=== PATIENT | female | born 1950 | race Caucasian/White ===

== ENCOUNTER 2016-12-25 13:51 | Outpatient (CLI) | payer MEDICARE ==
[~2016-12-25] VITALS: Ht 162.6 cm; Wt 92.5 kg
[~2016-12-25 13:51] MED LIST: CHLO25TA PO; LEVO100T5 PO; LISI10TA4 PO
[2016-12-25] MEDS ORDERED: NS 1,000 ML IV ONE (14:00)
[2016-12-25] MEDS ORDERED: fentaNYL 100 MCG/2 ML INJECTION (J3010) As Ordered ONE (14:29)
[2016-12-25] MEDS ORDERED: LIDOCAINE 2% INJ 100 MG/5 ML SDV (FOR ANES.) As Ordered ONE (14:37)
[2016-12-25] MEDS ORDERED: PROPOFOL 200 MG/20 ML VIAL As Ordered ONE (14:37)
--- NOTE | 2016-12-25 14:42 | ROOR ---
Patient Name: Francine Muir Procedure Date: 12/25/2016 2:26 PM Date of : 1950 Age: 66 Room: [facility], [facility]IN [facility] Gender: Female Note Status: Finalized Procedure: Upper GI endoscopy Indications: Dysphagia Providers: DO Anh Espinoza MD: Marva Galvan NP Requesting Provider: Medicines: Propofol per Anesthesia Complications: No immediate complications. Procedure: Pre-Anesthesia Assessment: - Prior to the procedure, a History and Physical was performed, and patient medications and allergies were reviewed. The patient is competent. The risks and benefits of the procedure and the sedation options and risks were discussed with the patient. All questions were answered and informed consent was obtained. Patient identification and proposed procedure were verified by the physician, the nurse, the anesthesiologist and the production technician in the endoscopy suite. Mental Status Examination: alert and oriented. Airway Examination: normal oropharyngeal airway and neck mobility. Respiratory Examination: clear to auscultation. CV Examination: normal. Prophylactic Antibiotics: The patient does not require prophylactic antibiotics. Prior Anticoagulants: The patient has taken no previous anticoagulant or antiplatelet agents. ASA Grade Assessment: II - A patient with mild systemic disease. After reviewing the risks and benefits, the patient was deemed in satisfactory condition to undergo the procedure. The anesthesia plan was to use monitored anesthesia care (MAC). Immediately prior to administration of medications, the patient was re-assessed for adequacy to receive sedatives. The heart rate, respiratory rate, oxygen saturations, blood pressure, adequacy of pulmonary ventilation, and response to care were monitored throughout the procedure. The physical status of the patient was re-assessed after the procedure. The Endoscope was introduced through the mouth, and advanced to the second part of duodenum. The upper GI endoscopy was accomplished without difficulty. The patient tolerated the procedure well. Findings: LA Grade A (one or more mucosal breaks less than 5 mm, not extending between tops of 2 mucosal folds) esophagitis with bleeding was found. Biopsies were taken with a cold forceps for histology. One mild benign-appearing, intrinsic stenosis was found. And was traversed. Localized mild inflammation characterized by erythema was found in the stomach. Biopsies were taken with a cold forceps for Helicobacter pylori testing. Estimated blood loss was minimal. Impression: - LA Grade A esophagitis. Biopsied. - Benign-appearing esophageal stenosis. - Gastritis. Biopsied. Recommendation: - Patient has a contact number available for emergencies. The signs and symptoms of potential delayed complications were discussed with the patient. Return to normal activities tomorrow. Written discharge instructions were provided to the patient. - Return to my office PRN. - Telephone my office for pathology results in 1 week. Ricky Alejo DO 12/25/2016 2:41:54 PM This report has been signed electronically. Number of Addenda: 0 Note Initiated On: 12/25/2016 2:26 PM Estimated Blood Loss: Estimated blood loss was minimal.
[2016-12-25 15:07] VITALS: BP 133/68
== END 2016-12-25 15:06 | disposition home or self-care (01) ==
LOC: M OPP 13:51
PROVIDERS: ATTEND Surgery
DX: R13.10 Dysphagia, unspecified (principal); K20.9 Esophagitis, unspecified; K22.2 Esophageal obstruction; K29.70 Gastritis, unspecified, without bleeding; K21.9 Gastro-esophageal reflux disease without esophagitis; I10 Essential (primary) hypertension; E03.9 Hypothyroidism, unspecified; E04.1 Nontoxic single thyroid nodule; R12 Heartburn; Z78.0 Asymptomatic menopausal state; R06.83 Snoring; Z79.899 Other long term (current) drug therapy; Z80.42 Family history of malignant neoplasm of prostate
CPT/HCPCS: 43239; 88305; J3010

== ENCOUNTER → 2019-09-08 | Outpatient (CLI) | payer MEDICARE ==
--- NOTE | 2019-09-09 12:41 | SLEEPCENT ---
DATE OF STUDY: 09/08/2019 ORDERED BY: Ren Rios Nocturnal polysomnography was performed for evaluation of sleep physiology in this patient with a history of excessive somnolence, morning headaches and nonrestorative sleep who has comorbidities of hypothyroidism and hypertension. 7 hours and 46 minutes of data were reviewed. There were 386.5 minutes of sleep identified. Sleep latency was mildly prolonged at 18 minutes. Rapid eye movement (REM) latency was more so prolonged at 161 minutes. Sleep architecture showed fragmentation. There were 3 REM cycles. Overall sleep efficiency was 83.7%. The patient's electrocardiogram showed a sinus rhythm with an average heart rate of 75 beats per minute. Rate ranged 50-100. Electroencephalogram (EEG) showed normal waveforms for awake and sleep. There were 170 respiratory events identified of 10 seconds in duration or greater for an apnea-hypopnea index of 26.4. The events were primarily obstructive, though 8 central and 11 mixed apneas were also seen. The events were not exclusive to sleep stage nor body posture. Arousals were seen 5.6 times per hour and oxygen desaturations into the low 70s. There was some activity noted in the limb leads, but limb movement arousal index was only 4.5. Snoring was noted over the entire study. IMPRESSION: Obstructive sleep apnea syndrome (G47.33). Apnea-hypopnea index 26.4. RECOMMENDATION: The patient should be encouraged to return to the sleep disorder center for pressure therapy. In the interim, alcohol and sedative avoidance should be practiced and caution exercised during the operation of motor vehicles.
== END ==
LOC: M SLEEP 20:00
PROVIDERS: ATTEND Physician Assistant
DX: G47.33 Obstructive sleep apnea (adult) (pediatric) (principal)

== ENCOUNTER → 2019-10-18 | Outpatient (CLI) | payer MEDICARE ==
--- NOTE | 2019-10-25 11:11 | SLEEPCENT ---
DATE OF STUDY: 10/18/2019 ORDERING PROVIDER: RONY Puentes Nocturnal polysomnography was performed for the titration of pressure therapy in this patient with obstructive sleep apnea syndrome. Apnea-hypopnea index 26.4. For testing, a ResMed AirFit F20 full face mask of medium size was used. 4 cm of water pressure were applied to the circuit, and the lights were extinguished. 7 hours and 51 minutes of data were reviewed. There were 355.5 minutes of sleep identified. Sleep latency was prolonged at 29 minutes. Rapid eye movement (REM) latency was prolonged at 120 minutes. Sleep architecture did improve later in the study on pressure therapy. There was three REM cycles noted. Overall sleep efficiency was 76.4%. The electrocardiogram showed a sinus rhythm with an average heart rate of 64 beats per minute. Electroencephalogram (EEG) showed normal waveforms for awake and sleep. Respiratory events were reasonably palliated with continuous positive airway pressure (CPAP) at a pressure of +7. There was scattered limb activity noted in the electromyelogram (EMG) leads. Limb movement arousal index on this occasion was 8.4. IMPRESSION: Obstructive sleep apnea syndrome (G47.33). RECOMMENDATION: Nightly use of pressure therapy, 7 cm of water.
== END ==
LOC: M SLEEP 20:00
PROVIDERS: ATTEND Physician Assistant
DX: G47.33 Obstructive sleep apnea (adult) (pediatric) (principal)

== ENCOUNTER → 2020-03-23 | Outpatient (CLI) | payer MEDICARE ==
[~2020-03-23] MED LIST changes: +E-Z-GAS II EFFERVESCENT PACKET (SODIUM BICARB./CITRIC ACID/SIMETHICONE) As Ordered ONE; +E-Z-HD 98% w/w 340GM SUSP BTL As Ordered ONE; +E-Z-PAQUE 96% w/w SUSP 176GM BTL As Ordered ONE; +ISOVUE-370 76% 100ML VIAL As Ordered ONE
--- NOTE | 2020-03-23 09:52 | REP ---
INDICATION: DYSPHAGIA CT 1ST XR 2ND FILE ROOM. Three years of dysphagia associated with vomiting. History of total thyroidectomy. COMPARISON: No comparison CT study.. TECHNIQUE: Contrast enhancement dose is 75 mL of intravenous Isovue 370. Helical scanning is acquired and 3 mm axial images are generated. Coronal and sagittal MPR images are generated. FINDINGS: Digital preliminary tile and marble setter views are unremarkable. The paranasal sinuses show no mucosal changes. There is a small benign osteoma in the left mid ethmoid air cells measuring 5 mm in size. No intraorbital abnormality is seen. The parotid and submandibular glands are symmetric in size and normal in appearance. The thyroid is removed with surgical clips. No thyroid tissue or regional adenopathy is seen. No vascular abnormality is observed. There is no evidence of suprahyoid or infrahyoid adenopathy or mass. Tonsillar and peritonsillar soft tissues are unremarkable. There is a tonsillar crypt calcification on the left. There is some spray artifact from dental amalgam. There is degenerative spondylosis in the cervical spine. Fairly large right anterior osteophytes are formed at C4-5 and C5-6. These do indent the right posterior wall of the hypopharynx slightly. Glottic and subglottic airway is unremarkable. Lung apices are clear. No bony destructive lesion is seen. Visualized intracranial structures are unremarkable. 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 Post thyroidectomy. 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 Otherwise negative. <Electronically signed by Deven Yang > 03/23/20 0949
--- NOTE | 2020-03-23 16:44 | REP ---
INDICATION: DYSPHAGIA COMPARISON: None. TECHNIQUE: This procedure was performed under the direct supervision of Dr. العلي. Images were reviewed with Dr. العلي. Liquid barium and gas producing granules were given in the erect position as well as liquid barium in the prone oblique positions in order to perform a double contrast esophagram examination. FINDINGS: A single view PA chest x-ray is submitted as a behavioral health technician film. The superior mediastinal structures are midline. The heart size is within normal limits. The lungs are clear. The oral and pharyngeal stages of deglutition are unremarkable. During esophageal transport there are tertiary waves demonstrated. There is a sliding-type hiatal hernia. Gastroesophageal reflux is not demonstrated on this examination. IMPRESSION: 1. Tertiary waves. 2. There is a sliding-type hiatal hernia. 0.9 minutes of fluoroscopy time was utilized for this procedure. <Electronically signed by Rogerio Buck > 03/23/20 1531 <Electronically signed by Ricky العلي > 03/23/20 1641
== END ==
LOC: M RAD 08:49
PROVIDERS: ATTEND Otolaryngology
DX: R13.10 Dysphagia, unspecified (principal)
CPT/HCPCS: 70491; 74220; Q9967

== ENCOUNTER → 2021-04-02 | Outpatient (CLI) | payer MEDICARE ==
[~2021-04-02] MED LIST changes: -E-Z-GAS II EFFERVESCENT PACKET (SODIUM BICARB./CITRIC ACID/SIMETHICONE) As Ordered ONE; -E-Z-HD 98% w/w 340GM SUSP BTL As Ordered ONE; -E-Z-PAQUE 96% w/w SUSP 176GM BTL As Ordered ONE; -ISOVUE-370 76% 100ML VIAL As Ordered ONE; +LISI10TA22 PO; -LISI10TA4 PO; +METF500T13 PO
== END ==
LOC: M LABSMTC 11:04
PROVIDERS: ATTEND Anesthesiology
DX: Z01.812 Encounter for preprocedural laboratory examination (principal); Z20.822 Contact with and (suspected) exposure to COVID-19

== ENCOUNTER 2021-04-06 07:02 | Day surgery (SDC) | payer MEDICARE ==
[~2021-04-06] VITALS: Ht 162.6 cm; Wt 94.3 kg
[~2021-04-06 07:02] MED LIST changes: +NS 1,000 ML IV ONE
--- OUTSIDE RECORDS SUMMARY | 2021-04-06 07:10 | CCD | Continuity of Care Document ---
Author Author Francine [facility] Organization Unknown Address [address] [place] [address], [address] [place] [address] Phone [phone] Care Team Providers Care [employer] Coach Name Role Phone Zunilda Willson D.O. AUTM [phone] AUTM Unavailable Francis Sinha M.D. AUTM [phone] Jason Lozano MD AUTM Problems Active Problems Provider Date Essential hypertension Yrn Harper M.D. Onset: 3 Hemorrhage of rectum and anus Yrn Harper M.D. Onset: Screening for malignant neoplasm of colon Radha Ritter Onset: 01/27/2013 Obstructive sleep apnea syndrome RONY Puentes Onset: 09/15/2019 Social History Type Date Description Comments Sex Unknown ETOH Use 3-4 Weekly Tobacco Use Start: Unknown Patient has never smoked Recreational Drug Use Denies Drug Use Smoking Status Reviewed: 12/07/20 Patient has never smoked Allergies, Adverse Reactions, Alerts Description No Known Drug Allergies Medications Active Medications SIG Qnty Indications Ordering Provide r Date Clenpiq 10-3.5-12mg-GM -GM/160ML S olution take as directed per doctor's bowel prep instructions. 320ml Z86.0 10 Francis Sinha MD 01/31/[address] take 4 tabs by mouth prior to procedure per instructions. 4tabs Z86.010 Francis Sinha MD 01/31/2021 CPAP Device 7cm vadim Nick D.O. 10/26/2019 Levothyroxine Sodium 100mcg Tablet s 1 tab by mouth every day 30tabs Unknown Lisinopril 10mg Tablets 1 tab by mouth every day 30tabs Unknown Chlorthalidone 25mg Tablets 1 by mouth every day Unknown Metformin HCL ER 500mg Tablets ER 24HR 1 tab by mouth every day 60tabs Zunilda Willson D.O. Albuterol Sulfate HFA 108(90Base) mcg/Act Aerosol Inhale Two Puffs By Mouth Four Times A Day as Needed For Wheeze Unknown Immunizations Description No Information Available Vital Signs Date Vital Result Comment 01/31/2021 1:07pm BP Systolic 140 mmHg BP Diastolic 72 mmHg Height 64 inches 5'4" Weight 208.00 lb BMI (Body Mass Index) 35.7 kg/m2 Wells Body Weight 120 lb Weight 94.349 kg BSA (Body Surface Area) 1.99 m2 12/07/2020 3:09pm BP Systolic 138 mmHg BP Diastolic 72 mmHg Heart Rate 62 /min O2 % BldC Oximetry 97 % Height 64 inches 5'4" Weight 209.25 lb BMI (Body Mass Index) 35.9 kg/m2 Wells Body Weight 120 lb Weight 94.916 kg BSA (Body Surface Area) 1.99 m2 Results Description No Information Available Procedures Date Code Description Status 01/31/2021 78192 Office/Outpatient New Moderate M DM 45-59 Minutes Completed 12/07/2020 52011 Office/Outpatient Established Mo d MDM 30-39 Min Completed 12/07/2020 38311 Office/Outpatient Established Lo w MDM 20-29 Min Completed Medical Devices Description No Information Available Encounters Type Date Location Provider Dx Diagnosis Office Visit 01/31/2021 1:00p [facility] PELON WatsonC R13.10 Dysphagia, unspecified Z86.010 Personal history of colonic polyps Office Visit 12/07/2020 1:30p [facility] Jason Lozano MD R13.10 Dysphagia, unspecified Office Visit 12/07/2020 3:30p [facility] RONY Puentes G47.33 Obstructive sleep apnea (adult) (pediatr ic) Assessments Date Code Description Provider 01/31/2021 R13.10 Dysphagia, unspecified MAYRA Watson 01/31/2021 Z86.010 Personal history of colonic poly ps MAYRA Watson 12/07/2020 G47.33 Obstructive sleep apnea (adult) (pediatric) RONY Puentes 12/07/2020 R13.10 Dysphagia, unspecified Jason perez MD Plan of Treatment Future Appointment(s):* 04/03/2021 7:30 am - Abilio Hart M.D. at [facility] * 06/12/2021 2:30 pm - RONY Puentes at [facility] 01/31/2021 - MAYRA Watson* R13.10 Dysphagia, unspecified * Z86.010 Personal history of colonic polyps * * New Orders:* Endoscopy with possible dilation, Ordered: 01/31/21 * Comments:* Will arrange for upper endoscopy with possible dilation and colonoscopy. Reviewed risks and benefits of the procedures, as well as other options, with the patient. Prep for this procedure was discussed with patient, including risks and side effects associated with the prep. Patient verbalized understanding of all of the above and is in agreement to proceed. Patient will seek medical attention for any acute changes. Will monitor. * Follow up:* 2 weeks after procedures, sooner if needed. Functional Status Functional Condition Comment Date Status Independent with all ADL's Activ e Mental Status Mental Condition Comment Date Status Cognitive ability not impaired A ctive Referrals Refer to Reason for Referral Status Appt Date Abilio Hatr M.D. DYSPHAGIA Scheduled 01/31 [facility] [address], [address] [place] [address] [phone]
--- OUTSIDE RECORDS SUMMARY | 2021-04-06 07:10 | CCD ---
Author Author Zunilda Willson DO Organization Zunilda Willson DO Address [address] [facility] [address] [place], [place] [id number] Care Team Providers Care Queen Producer Name Role Phone Zunilda Willson DO Unavailable Zunilda Willson DO PCP ENCOUNTERS Encounter Performer Loca tion Date Diabetes mellitus [SNOMED-CT: 62328229] Dr. Zunilda Willson DO 03-02-2021 Hypertension [SNOMED-CT: 67287616] Sonia Willson DO 03-02-2021 Other hyperlipidemia [ICD10: E78.49] Dr. Zunilda Willson DO 03-02-2021 Vitamin D deficiency [SNOMED-CT: 11883336] Dr. Zunilda Willson DO 03-02-2021 Obstructive sleep apnea [SNOMED-CT: 66505424] Dr. Zunilda Willson DO 03-02-2021 Malaise and fatigue [SNOMED-CT: 227803922] Dr. Zunilda Willson DO 03-02-2021 Breast screening, unspecified [ICD10: Z12.39] Dr. Zunilda Willson DO 03-02-2021 Insomnia [SNOMED-CT: 723522484] Dr. Zunilda Willson DO 03-02-2021 Acute low back pain [SNOMED-CT: 238570295] Dr. Zunilda Willson DO 12-15-2020 Acute low back pain [SNOMED-CT: 884066305] Dr. Zunilda Willson DO 12-13-2020 Globus sensation [SNOMED-CT: 04351000] Dr. Zunilda Willson, DO 12-13-2020 Choking sensation [SNOMED-CT: 994682080] Dr. Zunilda Willson, DO 12-13-2020 Asthmatic bronchitis [SNOMED-CT: 891282154] Dr. Zunilda Willson, DO 03-29-2020 Diabetes mellitus [SNOMED-CT: 72389478] Dr. Zunilda Willson, DO 03-21-2020 Hypothyroidism [SNOMED-CT: 15755028] Dr. Zunilda Willson, DO 03-21-2020 Hypertension [SNOMED-CT: 31883818] Sonia Willson, DO 02-16-2020 Other hyperlipidemia [ICD10: E78.49] Dr. Zunilda Willson, DO 02-16-2020 Hypothyroidism [SNOMED-CT: 72160739] Dr. Zunilda Willson, DO 02-16-2020 Pain in left knee [SNOMED-CT: 281203733604100] Dr. Zunilda Willson, DO 02-16-2020 Globus sensation [SNOMED-CT: 50130945] Dr. Zunilda Willson, DO 02-16-2020 Prediabetes [SNOMED-CT: 494039544] Sonia Willson, DO 02-16-2020 ALLERGIES AND ADVERSE REACTIONS No known allergies. FUNCTIONAL STATUS There is no cognitive and functional status saved for this patient. IMMUNIZATIONS Vaccine Date Status Moderna COVID-19 Vaccine (207) 03/02 9:53:22 AM Completed MEDICAL EQUIPMENT Patient has no history of implanted devices. MEDICATIONS Medication Generic Name Instructions Dosage Start Date Status levothyroxine 100 mcg (0.1 mg) oral tablet, [RxNorm: 8 38545] levothyroxine one po daily 90 03/02/2021 Active Ventolin HFA 90 mcg/inh inhalation aerosol albuterol two puffs qid prn wheeze 1 03/02/2021 Active metFORMIN 500 mg oral tablet, extended release metFORMIN one po daily after largest meal 90 03/02/2021 Active lisinopril 10 mg oral tablet, [RxNorm: 794651] lisinopril one po daily 90 03/02/20 21 Active chlorthalidone 25 mg oral tablet, [RxNorm: 549391] chlorthalidone one half po daily 45 03/02/2021 Active naproxen 500 mg oral delayed release tablet, [RxNorm: 576218] naproxen one po bid with food 0 12/15/2020 Active naproxen 500 mg (as sodium) oral tablet, extended release, [RxNorm: 9824171] naproxen one po bid prn with food 60 12/13/2020 Active INSURANCE PROVIDERS Payer Name Policy Type P olicy ID Covered [employer] Party ID Policy Garcia [facility] [id number] TRACE COLBY ASSESSMENTS # Routine general medical examination at a health care facility # Diabetes mellitus (E11.9): # Hypertension (I10): # Other hyperlipidemia (E78.49): # Vitamin D deficiency (E55.9):# Obstructive sleep apnea (G47.33):# Malaise and fatigue (R53.81):# Breast screening, unspecified (Z12.39):I# Insomnia (G47.00): PROBLEMS Problem Problem Status D ate Started Date Resolved Date Inactivated Diabetes mellitus [SNOMED-CT: 28265370] Active 03-21-2020 NA NA Routine general medical examination at a health care facility [ICD10: Z00.00] Active 02-16-2020 NA NA Hypertension [SNOMED-CT: 25036155] Active 02-16-2020 NA NA Other hyperlipidemia [ICD10: E78.49] Activ e 02-16-2020 NA NA Hypothyroidism [SNOMED-CT: 24642443] Activ e 02-16-2020 NA NA Pain in left knee [SNOMED-CT: 323553445147722] Active 02-16-2020 NA NA Globus sensation [SNOMED-CT: 61788067] Active 02-16-2020 NA NA Prediabetes [SNOMED-CT: 151047663] Active 02-16-2020 NA NA Vitamin D deficiency [SNOMED-CT: 97737271] Active 03-02-2021 NA NA Obstructive sleep apnea [SNOMED-CT: 91717380] Active 03-02-2021 NA NA Malaise and fatigue [SNOMED-CT: 264206427] Active 03-02-2021 NA NA Breast screening, unspecified [ICD10: Z12.39] Active 03-02-2021 NA NA Insomnia [SNOMED-CT: 050059867] Active 03-02-2021 NA NA Acute low back pain [SNOMED-CT: 599391482] Active 12-13-2020 NA NA Choking sensation [SNOMED-CT: 922994012] Active 12-13-2020 NA NA Asthmatic bronchitis [SNOMED-CT: 935648829] Active 03-29-2020 NA NA PROCEDURES Procedure Date CPT Code Procedure 03/02/2021 08:57:15 G0439 ANNUAL WELLNESS VISIT, SUBSEQUENT 03/02/2021 08:57:15 G8427 Eligible clinician attests to documenting in the medical record they obtained, updated, or reviewed the patient's current medications 03/02/2021 08:57:15 Dilated retinal eye exam with interpretation by an critical care unit manager or home care specialist documented and reviewed (DM) 03/02/2021 08:57:15 1036F Current tobacco non-user (CAD, CAP, COPD, PV) (DM) (IBD) 03/02/2021 08:57:15 3017F Colorectal cancer screening results documented and reviewed (PV) 03/02/2021 08:57:15 1123F Advance Care Planning discussed and documented advance care plan or surrogate decision maker documented in the medical record (DEM) (ANI, Pall Cr) 12/15/2020 09:30:37 09024 Telephone evaluation and management service by a physician or other qualified health direct care counselor who may report evaluation and management services provided to an established patient, parent, or guardian not originating from a related E/M service provided within the previous 7 days nor leading to an E/M service or procedure within the next 24 hours or soonest available appointment; 11-20 minutes of medical discussion 12/13/2020 09:29:47 71008 Telephone evaluation and management service by a physician or other qualified health direct care counselor who may report evaluation and management services provided to an established patient, parent, or guardian not originating from a related E/M service provided within the previous 7 days nor leading to an E/M service or procedure within the next 24 hours or soonest available appointment; 21-30 minutes of medical discussion 03/29/2020 12:19:20 09324 Telephone evaluation and management service by a physician or other qualified health direct care counselor who may report evaluation and management services provided to an established patient, parent, or guardian not originating from a related E/M service provided within the previous 7 days nor leading to an E/M service or procedure within the next 24 hours or soonest available appointment; 11-20 minutes of medical discussion 03/21/2020 09:40:46 84701 Telephone evaluation and management service by a physician or other qualified health direct care counselor who may report evaluation and management services provided to an established patient, parent, or guardian not originating from a related E/M service provided within the previous 7 days nor leading to an E/M service or procedure within the next 24 hours or soonest available appointment; 11-20 minutes of medical discussion 02/16/2020 08:36:23 88268 Office or other outpatient visit for the evaluation and management of a new patient, which requires these 3 pacheco components: A detailed history; A detailed examination; Medical decision making of low complexity. Counseling and/or coordination of care with other providers or agencies are provided consistent with the nature of the problem(s) and the patient's and/or family's needs. Usually, the presenting problem(s) are of moderate severity. Physicians typically spend 30 minutes [id number] with the patient and/or family. 02/16/2020 08:36:23 G0439 ANNUAL WELLNESS VISIT, SUBSEQUENT 02/16/2020 08:36:23 G8427 Eligible clinician attests to documenting in the medical record they obtained, updated, or reviewed the patient's current medications 02/16/2020 08:36:23 1036F Current tobacco non-user (CAD, CAP, COPD, PV) (DM) (IBD) REASON FOR REFERRAL No Reason for Referral information available. RESULTS Result Type Result Value Relevant Reference Range Interpretation Date TSH 2.808 uIU/mL 0.358-3 .74 No Flag 02/28/2021 10:16:00 GLOMERULAR FILTRATION RAT 62 mL/min -- No Flag 02/28/2021 09:50:00 GLUCOSE 119 mg/dL 74-106 H 02/28/2021 09:50:00 BLOOD UREA NITROGEN 14 mg/dL 7-18 No Flag 02/28/2021 09:50:00 CREATININE 0.90 mg/dL 0. 6-1.0 No Flag 02/28/2021 09:50:00 SODIUM 140 mmol/L 136-145 No Flag 02/28/2021 09:50:00 POTASSIUM 4.2 mmol/L 3.5 -5.1 No Flag 02/28/2021 09:50:00 CHLORIDE 103 mmol/L 98-1 07 No Flag 02/28/2021 09:50:00 CO2 29 mmol/L 21-32 No Flag 02/28/2021 09:50:00 CALCIUM 9.4 mg/dL 8.5-10 .1 No Flag 02/28/2021 09:50:00 ANION GAP 8.0 mmol/L 5-12 No Flag 02/28/2021 09:50:00 AST 17 U/L 15-37 No Flag 02/28/2021 09:50:00 ALT 47 U/L 12-78 No Flag 02/28/2021 09:50:00 ALKALINE PHOSPHATASE 77 U/L 46-116 No Flag 02/28/2021 09:50:00 TOTAL BILIRUBIN 0.4 mg/dL 0.2-1.0 No Flag 02/28/2021 09:50:00 TOTAL PROTEIN 7.6 g/dl 6 .4-8.2 No Flag 02/28/2021 09:50:00 ALBUMIN 4.0 gm/dL 3.4-5.0 No Flag 02/28/2021 09:50:00 CHOLESTEROL 238 mg/dL 0- 200 H 02/28/2021 09:50:00 TRIGLYCERIDES 215 mg/dL 0-150 H 02/28/2021 09:50:00 LDL CHOLESTEROL 148 mg/dL 0-100 H 02/28/2021 09:50:00 HDL CHOLESTEROL 47 mg/dL 40-60 No Flag 02/28/2021 09:50:00 CHOL/HDL RATIO 5.1 0.0- 5.0 H 02/28/2021 09:50:00 RED BLOOD COUNT 4.98 M/mm3 4.00-5.50 No Flag 02/28/2021 09:21:00 HEMOGLOBIN 14.5 gm/dL 12 .0-16.0 No Flag 02/28/2021 09:21:00 HEMATOCRIT 42.6 % 36.0-4 8.8 No Flag 02/28/2021 09:21:00 MEAN CELL VOLUME 85.5 fl 80-96 No Flag 02/28/2021 09:21:00 MEAN CORPUSCULAR HEMOGLOB 29.1 pg 27.0-31.0 No Flag 02/28/2021 09:21:00 MEAN CORPUSCULAR HGB CONC 34.0 g/dl 32.0- 36.0 No Flag 02/28/2021 09:21:00 RED CELL DISTRIBUTION WID 13.6 % 10.0-14.5 No Flag 02/28/2021 09:21:00 PLATELET COUNT 354 K/mm3 172-450 No Flag 02/28/2021 09:21:00 MEAN PLATELET VOLUME 9.3 fl 9.0-13.0 No Flag 02/28/2021 09:21:00 GRAN % 50.1 % 50-80.0 No Flag 02/28/2021 09:21:00 IG% 0.5 % 0.0-0.2 H 02/28/2021 09:21:00 LYMPH % 37.8 % 25.0-50.0 No Flag 02/28/2021 09:21:00 MONO % 6.2 % 2.0-10.0 No Flag 02/28/2021 09:21:00 EOS % 4.9 % 0-5.0 No Flag 02/28/2021 09:21:00 BASO % 0.5 % 0.0-2.0 No Flag 02/28/2021 09:21:00 GRAN # 3.7 K/mm3 2.0-8.00 No Flag 02/28/2021 09:21:00 IG# 0.0 K/mm3 0.0-0.2 No Flag 02/28/2021 09:21:00 LYMPH # 2.8 K/mm3 1.0-5.0 No Flag 02/28/2021 09:21:00 MONO # 0.5 K/mm3 0.10-1. 20 No Flag 02/28/2021 09:21:00 EOS # 0.4 K/mm3 0.0-0.5 No Flag 02/28/2021 09:21:00 BASO # 0.0 K/mm3 0.0-0.2 No Flag 02/28/2021 09:21:00 WHITE BLOOD COUNT 7.4 K/mm3 4.0-10.0 No Flag 02/28/2021 09:21:00 TSH 0.307 uIU/mL 0.360-3 .740 L 06/29/2020 08:55:00 HGBA1C 6.3 % 3.8-5.6 H 06/29/2020 08:30:00 ESTIMATED AVERAGE GLUCOSE 134.1 mg/dL -- No Flag 06/29/2020 08:30:00 ESTIMATED AVERAGE GLUCOSE 139.9 mg/dL -- No Flag 03/20/2020 10:45:00 HGBA1C 6.5 % 3.8-5.6 H 03/20/2020 10:45:00 CHOLESTEROL 230 mg/dL 0- 200 H 03/20/2020 10:39:00 TRIGLYCERIDES 219 mg/dL 0-150 H 03/20/2020 10:39:00 LDL CHOLESTEROL 146 mg/dL 0-100 H 03/20/2020 10:39:00 HDL CHOLESTEROL 40 mg/dL 40-60 No Flag 03/20/2020 10:39:00 CHOL/HDL RATIO 5.8 0.0- 5.0 H 03/20/2020 10:39:00 GLOMERULAR FILTRATION RAT 55 mL/min -- No Flag 03/20/2020 10:39:00 GLUCOSE 117 mg/dL 74-106 H 03/20/2020 10:39:00 BLOOD UREA NITROGEN 16 mg/dL 7-18 No Flag 03/20/2020 10:39:00 CREATININE 1.0 mg/dL 0.6 -1.0 No Flag 03/20/2020 10:39:00 SODIUM 141 mmol/L 136-145 No Flag 03/20/2020 10:39:00 POTASSIUM 4.6 mmol/L 3.5 -5.1 No Flag 03/20/2020 10:39:00 CHLORIDE 103 mmol/L 98-1 07 No Flag 03/20/2020 10:39:00 CO2 29 mmol/L 21-32 No Flag 03/20/2020 10:39:00 CALCIUM 9.8 mg/dL 8.5-10 .1 No Flag 03/20/2020 10:39:00 ANION GAP 9.0 mmol/L 5-12 No Flag 03/20/2020 10:39:00 AST 22 U/L 15-37 No Flag 03/20/2020 10:39:00 ALT 45 U/L 12-78 No Flag 03/20/2020 10:39:00 ALKALINE PHOSPHATASE 79 U/L 46-116 No Flag 03/20/2020 10:39:00 TOTAL BILIRUBIN 0.4 mg/dL 0.2-1.0 No Flag 03/20/2020 10:39:00 TOTAL PROTEIN 7.7 g/dl 6 .4-8.2 No Flag 03/20/2020 10:39:00 ALBUMIN 4.1 gm/dL 3.4-5.0 No Flag 03/20/2020 10:39:00 TSH 0.25 uIU/mL 0.36-3.74 L 03/20/2020 10:39:00 WHITE BLOOD COUNT 6.5 K/mm3 4.0-10.0 No Flag 03/20/2020 10:25:00 RED BLOOD COUNT 4.96 M/mm3 4.00-5.50 No Flag 03/20/2020 10:25:00 HEMOGLOBIN 14.3 gm/dL 12 .0-16.0 No Flag 03/20/2020 10:25:00 HEMATOCRIT 43.0 % 36.0-4 8.8 No Flag 03/20/2020 10:25:00 MEAN CELL VOLUME 86.7 fl 80-96 No Flag 03/20/2020 10:25:00 MEAN CORPUSCULAR HEMOGLOB 28.8 pg 27.0-31.0 No Flag 03/20/2020 10:25:00 MEAN CORPUSCULAR HGB CONC 33.3 g/dl 32.0- 36.0 No Flag 03/20/2020 10:25:00 RED CELL DISTRIBUTION WID 13.2 % 10.0-14.5 No Flag 03/20/2020 10:25:00 PLATELET COUNT 354 K/mm3 172-450 No Flag 03/20/2020 10:25:00 MEAN PLATELET VOLUME 9.4 fl 9.0-13.0 No Flag 03/20/2020 10:25:00 GRAN % 48.4 % 50-80.0 L 03/20/2020 10:25:00 IG% 0.6 % 0.0-0.2 H 03/20/2020 10:25:00 LYMPH % 39.1 % 25.0-50.0 No Flag 03/20/2020 10:25:00 MONO % 6.9 % 2.0-10.0 No Flag 03/20/2020 10:25:00 EOS % 4.5 % 0-5.0 No Flag 03/20/2020 10:25:00 BASO % 0.5 % 0.0-2.0 No Flag 03/20/2020 10:25:00 GRAN # 3.1 K/mm3 2.0-8.00 No Flag 03/20/2020 10:25:00 IG# 0.0 K/mm3 0.0-0.2 No Flag 03/20/2020 10:25:00 LYMPH # 2.5 K/mm3 1.0-5.0 No Flag 03/20/2020 10:25:00 MONO # 0.5 K/mm3 0.10-1. 20 No Flag 03/20/2020 10:25:00 EOS # 0.3 K/mm3 0.0-0.5 No Flag 03/20/2020 10:25:00 BASO # 0.0 K/mm3 0.0-0.2 No Flag 03/20/2020 10:25:00 SOCIAL HISTORY Social History Observation Description Dates Observed Smoking Status Never smoker, [SNOMED -CT: 657746794] TREATMENT PLAN Encounter Date [facility] 03/02/2021 08:57:15 Plan printed and provided to patient: PRESCRIBE: levothyroxine 100 mcg (0.1 mg) oral tablet, one po daily, # 90 , RF: 3. (Transmitted by Zunilda Willson, ) PRESCRIBE: Ventolin HFA 90 mcg/inh inhalation aerosol, two puffs qid prn wheeze, # 1, RF: 1. (Transmitted by Zunilda Willson DO) PRESCRIBE: metFORMIN 500 mg oral tablet, extended release, one po daily after largest meal, # 90, RF: 3. (Transmitted by Zunilda Willson, DO) PRESCRIBE: lisinopril 10 mg oral tablet, one po daily, # 90, RF: 3. (Transmitted by Zunilda Willson DO) PRESCRIBE: chlorthalidone 25 mg oral tablet, one half po daily, # 45, RF: 3. (Transmitted by Zunilda Willson, ) PRESCRIBE: levothyroxine 100 mcg (0.1 mg) oral tablet, one po daily, # 90 , RF: 3. ORDERED/ADVISED: Order Date 03-02-2021 hyrdroxyvitamin D (E11.9) - HGBA1C (E11.9) ORDERED/ADVISED: Order Date 03-02-2021 - Screening Mammogram (Z12.39) PROVIDED VACCINATION: (Given Elsewhere) COVID-19, both doses second dose july PROVIDED HM: Screening for Depression in Adults Given: 2 question screen neg PROVIDED HM: High Blood Pressure in Adults: Screening Given: urged to do some reading...okay in specialty offices PROVIDED HM: Assess Adult Immunization Status Given: get pneumonia shot 03/02/2021 08:57:15 Plan printed and provided to patient: PRESCRIBE: levothyroxine 100 mcg (0.1 mg) oral tablet, one po daily, # 90 , RF: 3. (Transmitted by Zunilda Willson DO) PRESCRIBE: Ventolin HFA 90 mcg/inh inhalation aerosol, two puffs qid prn wheeze, # 1, RF: 1. (Transmitted by Zunilda Willson DO) PRESCRIBE: metFORMIN 500 mg oral tablet, extended release, one po daily after largest meal, # 90, RF: 3. (Transmitted by Zunilda Willson DO) PRESCRIBE: lisinopril 10 mg oral tablet, one po daily, # 90, RF: 3. (Transmitted by Zunilda Willson DO) PRESCRIBE: chlorthalidone 25 mg oral tablet, one half po daily, # 45, RF: 3. (Transmitted by Zunilda Willson DO) PRESCRIBE: levothyroxine 100 mcg (0.1 mg) oral tablet, one po daily, # 90 , RF: 3. ORDERED/ADVISED: Order Date 03-02-2021 - 25 hyrdroxyvitamin D (E11.9) - HGBA1C (E11.9) ORDERED/ADVISED: Order Date 03-02-2021 - Screening Mammogram (Z12.39) PROVIDED VACCINATION: (Given Elsewhere) COVID-19, both doses second dose july PROVIDED HM: Screening for Depression in Adults Given: 2 question screen neg PROVIDED HM: High Blood Pressure in Adults: Screening Given: urged to do some reading...okay in specialty offices PROVIDED HM: Assess Adult Immunization Status Given: get pneumonia shot 03/02/2021 08:57:15 Plan printed and provided to patient: PRESCRIBE: levothyroxine 100 mcg (0.1 mg) oral tablet, one po daily, # 90 , RF: 3. (Transmitted by Zunilda Willson DO) PRESCRIBE: Ventolin HFA 90 mcg/inh inhalation aerosol, two puffs qid prn wheeze, # 1, RF: 1. (Transmitted by Zunilda Willson DO) PRESCRIBE: metFORMIN 500 mg oral tablet, extended release, one po daily after largest meal, # 90, RF: 3. (Transmitted by Zunilda Willson, ) PRESCRIBE: lisinopril 10 mg oral tablet, one po daily, # 90, RF: 3. (Transmitted by Zunilda Willson DO) PRESCRIBE: chlorthalidone 25 mg oral tablet, one half po daily, # 45, RF: 3. (Transmitted by Zunilda Willson, ) PRESCRIBE: levothyroxine 100 mcg (0.1 mg) oral tablet, one po daily, # 90 , RF: 3. ORDERED/ADVISED: Order Date 03-02-2021 - 25 hyrdroxyvitamin D (E11.9) - HGBA1C (E11.9) ORDERED/ADVISED: Order Date 03-02-2021 - Screening Mammogram (Z12.39) PROVIDED VACCINATION: (Given Elsewhere) COVID-19, both doses second dose july PROVIDED HM: Screening for Depression in Adults Given: 2 question screen neg PROVIDED HM: High Blood Pressure in Adults: Screening Given: urged to do some reading...okay in specialty offices PROVIDED HM: Assess Adult Immunization Status Given: get pneumonia shot 12/15/2020 09:30:37 PRESCRIBE: naproxen 500 mg oral delayed release tablet, one po bid with food, # 60, RF: 1. (Transmitted by Zunilda Willson DO) use the muscle relaxer tid if nec 12 min 12/15/2020 09:30:37 PRESCRIBE: naproxen 500 mg oral delayed release tablet, one po bid with food, # 60, RF: 1. (Transmitted by Zunilda Willson, ) use the muscle relaxer tid if nec 12 min 12/15/2020 09:30:37 PRESCRIBE: naproxen 500 mg oral delayed release tablet, one po bid with food, # 60, RF: 1. (Transmitted by Zunilda Willson DO) use the muscle relaxer tid if nec 12 min 12/13/2020 09:29:47 PRESCRIBE: naproxen 500 mg (as sodium) oral tablet, extended release, one po bid prn with food, # 60, RF: 1. (Transmitted by Zunilda Willson DO) PRESCRIBE: cyclobenzaprine 10 mg oral tablet, one po tid prn muscle spasm, # 30, RF: 1. (Transmitted by Zunilda Willson DO) 22 min phone only This visit was spent in reviewing with the patient their chart, labs and testing, speaking with the patient via telemedicine(video feed), answering questions and completing a plan. ORDERED/ADVISED: Order Date 12-13-2020 - Abilio Hart (Gastroenterology) (globus choking) 21min Telephone 12/13/2020 09:29:47 PRESCRIBE: naproxen 500 mg (as sodium) oral tablet, extended release, one po bid prn with food, # 60, RF: 1. (Transmitted by Zunilda Willson DO) PRESCRIBE: cyclobenzaprine 10 mg oral tablet, one po tid prn muscle spasm, # 30, RF: 1. (Transmitted by Zunilda Willson DO) 22 min phone only This visit was spent in reviewing with the patient their chart, labs and testing, speaking with the patient via telemedicine(video feed), answering questions and completing a plan. ORDERED/ADVISED: Order Date 12-13-2020 - Abilio Hart (Gastroenterology) (globus choking) 12/13/2020 09:29:47 PRESCRIBE: naproxen 500 mg (as sodium) oral tablet, extended release, one po bid prn with food, # 60, RF: 1. (Transmitted by Zunilda Willson DO) PRESCRIBE: cyclobenzaprine 10 mg oral tablet, one po tid prn muscle spasm, # 30, RF: 1. (Transmitted by Zunilda Willson DO) 22 min phone only This visit was spent in reviewing with the patient their chart, labs and testing, speaking with the patient via telemedicine(video feed), answering questions and completing a plan. ORDERED/ADVISED: Order Date 12-13-2020 - Abilio Hart (Gastroenterology) (globus choking) 21min Telephone 03/29/2020 12:19:20 PRESCRIBE: Ventolin HFA 90 mcg/inh inhalation aerosol, two puffs qid prn wheeze, # 1, RF: 1. (Transmitted by Zunilda Willson DO) she will call back if worse and needing these numbers I have discussed with this patient the natural history of this disease and potential for worsening and what those early hallmarks maybe. Please call me should you have any further questions or concerns or worsening of your condition. Monitor temp and call if fever >100 You are the one to use a mask if sick and self quarentine for 14 days to protect others from you if necessary. "Social communication with physical isolation. " [facility] [phone] [employer]. [phone] You can also calll [facility] regarding the contact and possible testing. 11 min phone only 03/29/2020 12:19:20 PRESCRIBE: Ventolin HFA 90 mcg/inh inhalation aerosol, two puffs qid prn wheeze, # 1, RF: 1. (Transmitted by Zunilda Willson DO) she will call back if worse and needing these numbers I have discussed with this patient the natural history of this disease and potential for worsening and what those early hallmarks maybe. Please call me should you have any further questions or concerns or worsening of your condition. Monitor temp and call if fever >100 You are the one to use a mask if sick and self quarentine for 14 days to protect others from you if necessary. "Social communication with physical isolation. " [facility] [phone] [employer]. [phone] You can also calll [facility] regarding the contact and possible testing. 10 min phone only 03/29/2020 12:19:20 PRESCRIBE: Ventolin HFA 90 mcg/inh inhalation aerosol, two puffs qid prn wheeze, # 1, RF: 1. (Transmitted by Zunilda Willson DO) she will call back if worse and needing these numbers I have discussed with this patient the natural history of this disease and potential for worsening and what those early hallmarks maybe. Please call me should you have any further questions or concerns or worsening of your condition. Monitor temp and call if fever >100 You are the one to use a mask if sick and self quarentine for 14 days to protect others from you if necessary. "Social communication with physical isolation. " [facility] [phone] [employer]. [phone] You can also calll [facility] regarding the contact and possible testing. 11 min phone only 03/21/2020 09:40:46 PRESCRIBE: metFORMIN 500 mg oral tablet, extended release, one po daily after largest meal, # 90, RF: 3. (Transmitted by Zunilda Willson DO) Metformin discuseed at length ORDERED/ADVISED: Order Date 03-21-2020 in may - HGA1C (E11.9, E03.9) - TSH (E11.9, E03.9) she is following Keanu Valdovinos and making changes phone only19 min 03/21/2020 09:40:46 PRESCRIBE: metFORMIN 500 mg oral tablet, extended release, one po daily after largest meal, # 90, RF: 3. (Transmitted by Zunilda Willson DO) Metformin ORDERED/ADVISED: Order Date 03-21-2020 - HGA1C (E11.9, E03.9) - TSH (E11.9, E03.9) phone only19 min 03/21/2020 09:40:46 PRESCRIBE: metFORMIN 500 mg oral tablet, extended release, one po daily after largest meal, # 90, RF: 3. (Transmitted by Zunilda Willson DO) Metformin ORDERED/ADVISED: Order Date 03-21-2020 - HGA1C (E11.9, E03.9) - TSH (E11.9, E03.9) phone only19 min 02/16/2020 08:36:23 Plan printed and provided to patient: PRESCRIBE: chlorthalidone 25 mg oral tablet, one half po daily, # 45, RF: 3. (Transmitted by Zunilda Willson DO) PRESCRIBE: lisinopril 10 mg oral tablet, one po daily, # 90, RF: 3. (Transmitted by Zunilda Willson DO) ADDED Current Meds: chlorthalidone 25 mg oral tablet, one half po daily, # 0, RF: 0. ADDED Current Meds: levothyroxine 125 mcg (0.125 mg) oral tablet, one po qod alternating with 100, # 0, RF: 0. ADDED Current Meds: levothyroxine 100 mcg (0.1 mg)/mL intravenous solution, qod alternating with 125, # 0, RF: 0. ADDED Current Meds: lisinopril 10 mg oral tablet, one po daily, # 0, RF: 0. PROVIDED HM: Tobacco use counseling and interventions: non- adults Given: NI PROVIDED HM: Screening for Depression in Adults Given: 2 question screen neg PROVIDED HM: High Blood Pressure in Adults: Screening Given: 126/80 PROVIDED HM: Colorectal Cancer: Screening Given: done two years ago ?? by Dr. Harper PROVIDED HM: Screening for Breast Cancer with Mammography (age 50-74 years) Given: done in the [facility] last year PROVIDED HM: Screening for Anxiety Given: Score of zero PROVIDED HM: CDSMP Given: "the obesity code", " the diabetes code", and "quide to fasting" also "the longevity solution" by Keanu Valdovinos MD You can download a Snapguide syeda to your computer and get these books on [employer]. Watch the movie "the magic pill" documentary on [email or web address] Also [employer] movie call " Fat" the documentary Google Keanu Valdovinos Podcast 50 [employer] and watch it You can also find many you tube videos by Dr. Valdovinos. Ask to join the "Keanu Valdovinos and Jacinda Vo obesity code support group" PROVIDED HM: Assess Adult Immunization Status Given: get your flushot at [facility] and [facility] 13 Consider ENT eval. ORDERED/ADVISED: Order Date 02-16-2020 - Jason Lozano (ENT) (intermittent hoarseness) (F45.8, I10, E03.9, E78.49) ORDERED/ADVISED: Order Date 02-16-2020 - CBC with diff (automated) (F45.8, I10, E03.9, E78.49, M25.562, R73.03, Z00.00) - CMP (Complete Metabolic Panel) (F45.8, I10, E03.9, E78.49, M25.562, R73.03, Z00.00) - HGBA1C (F45.8, I10, E03.9, E78.49, M25.562, R73.03, Z00.00) - Lipid Panel (F45.8, I10, E03.9, E78.49, M25.562, R73.03, Z00.00) - TSH (F45.8, I10, E03.9, E78.49, M25.562, R73.03, Z00.00) ORDERED/ADVISED: Order Date 02-16-2020 - Jason Lozano (ENT) 02/16/2020 08:36:23 Plan printed and provided to patient: PRESCRIBE: chlorthalidone 25 mg oral tablet, one half po daily, # 45, RF: 3. (Transmitted by Zunilda Willson DO) PRESCRIBE: lisinopril 10 mg oral tablet, one po daily, # 90, RF: 3. (Transmitted by Zunilda Willson DO) ADDED Current Meds: chlorthalidone 25 mg oral tablet, one half po daily, # 0, RF: 0. ADDED Current Meds: levothyroxine 125 mcg (0.125 mg) oral tablet, one po qod alternating with 100, # 0, RF: 0. ADDED Current Meds: levothyroxine 100 mcg (0.1 mg)/mL intravenous solution, qod alternating with 125, # 0, RF: 0. ADDED Current Meds: lisinopril 10 mg oral tablet, one po daily, # 0, RF: 0. PROVIDED HM: Tobacco use counseling and interventions: non- adults Given: NI PROVIDED HM: Screening for Depression in Adults Given: 2 question screen neg PROVIDED HM: High Blood Pressure in Adults: Screening Given: 126/80 PROVIDED HM: Colorectal Cancer: Screening Given: done two years ago ?? by Dr. Harper PROVIDED HM: Screening for Breast Cancer with Mammography (age 50-74 years) Given: done in the [facility] last year PROVIDED HM: Screening for Anxiety Given: Score of zero PROVIDED HM: CDSMP Given: "the obesity code", " the diabetes code", and "quide to fasting" also "the longevity solution" by Keanu Valdovinos MD You can download a Snapguide syeda to your computer and get these books on [employer]. Watch the movie "the magic pill" documentary on [email or web address] Also [employer] movie call " Fat" the documentary Google Keanu Valdovinos Podcast 50 [employer] and watch it You can also find many you tube videos by Dr. Valdovinos. Ask to join the "Keanu Valdovinos and Jacinda Vo obesity code support group" PROVIDED HM: Assess Adult Immunization Status Given: get your [facility]ot [facility] 13 Consider ENT eval. ORDERED/ADVISED: Order Date 02-16-2020 - Jason Lozano (ENT) (intermittent hoarseness) (F45.8, I10, E03.9, E78.49) ORDERED/ADVISED: Order Date 02-16-2020 - CBC with diff (automated) (F45.8, I10, E03.9, E78.49, M25.562, R73.03, Z00.00) - CMP (Complete Metabolic Panel) (F45.8, I10, E03.9, E78.49, M25.562, R73.03, Z00.00) - HGBA1C (F45.8, I10, E03.9, E78.49, M25.562, R73.03, Z00.00) - Lipid Panel (F45.8, I10, E03.9, E78.49, M25.562, R73.03, Z00.00) - TSH (F45.8, I10, E03.9, E78.49, M25.562, R73.03, Z00.00) ORDERED/ADVISED: Order Date 02-16-2020 - Jason Lozano (ENT) 02/16/2020 08:36:23 PRESCRIBE: chlorthalidone 25 mg oral tablet, one half po daily, # 45, RF: 3. (Transmitted by Zunilda Willson DO) PRESCRIBE: lisinopril 10 mg oral tablet, one po daily, # 90, RF: 3. (Transmitted by Zunilda Willson DO) ADDED Current Meds: chlorthalidone 25 mg oral tablet, one half po daily, # 0, RF: 0. ADDED Current Meds: levothyroxine 125 mcg (0.125 mg) oral tablet, one po qod alternating with 100, # 0, RF: 0. ADDED Current Meds: levothyroxine 100 mcg (0.1 mg)/mL intravenous solution, qod alternating with 125, # 0, RF: 0. ADDED Current Meds: lisinopril 10 mg oral tablet, one po daily, # 0, RF: 0. PROVIDED HM: Tobacco use counseling and interventions: non- adults Given: NI PROVIDED HM: Screening for Depression in Adults Given: 2 question screen neg PROVIDED HM: High Blood Pressure in Adults: Screening Given: 126/80 PROVIDED HM: Colorectal Cancer: Screening Given: done two years ago ?? by Dr. Harper PROVIDED HM: Screening for Breast Cancer with Mammography (age 50-74 years) Given: done in the [facility] last year PROVIDED HM: Screening for Anxiety Given: Score of zero PROVIDED HM: CDSMP Given: "the obesity code", " the diabetes code", and "quide to fasting" also "the longevity solution" by Keanu Valdovinos MD You can download a Snapguide syeda to your computer and get these books on [employer]. Watch the movie "the magic pill" documentary on [email or web address] Also [employer] movie call " Fat" the documentary Google Keanu Valdovinos Podcast 50 [employer] and watch it You can also find many you tube videos by Dr. Valdovinos. Ask to join the "Keanu Valdovinos and Jacinda Vo obesity code support group" PROVIDED HM: Assess Adult Immunization Status Given: get your [facility] 13 Consider ENT eval. ORDERED/ADVISED: Order Date 02-16-2020 - Jason Lozano (ENT) (intermittent hoarseness) (F45.8, I10, E03.9, E78.49) ORDERED/ADVISED: Order Date 02-16-2020 - CBC with diff (automated) (F45.8, I10, E03.9, E78.49, M25.562, R73.03, Z00.00) - CMP (Complete Metabolic Panel) (F45.8, I10, E03.9, E78.49, M25.562, R73.03, Z00.00) - HGBA1C (F45.8, I10, E03.9, E78.49, M25.562, R73.03, Z00.00) - Lipid Panel (F45.8, I10, E03.9, E78.49, M25.562, R73.03, Z00.00) - TSH (F45.8, I10, E03.9, E78.49, M25.562, R73.03, Z00.00) 02/16/2020 08:36:23 Plan printed and provided to patient: PRESCRIBE: chlorthalidone 25 mg oral tablet, one half po daily, # 45, RF: 3. (Transmitted by Zunilda Willson DO) PRESCRIBE: lisinopril 10 mg oral tablet, one po daily, # 90, RF: 3. (Transmitted by Zunilda Willson DO) ADDED Current Meds: chlorthalidone 25 mg oral tablet, one half po daily, # 0, RF: 0. ADDED Current Meds: levothyroxine 125 mcg (0.125 mg) oral tablet, one po qod alternating with 100, # 0, RF: 0. ADDED Current Meds: levothyroxine 100 mcg (0.1 mg)/mL intravenous solution, qod alternating with 125, # 0, RF: 0. ADDED Current Meds: lisinopril 10 mg oral tablet, one po daily, # 0, RF: 0. PROVIDED HM: Tobacco use counseling and interventions: non- adults Given: NI PROVIDED HM: Screening for Depression in Adults Given: 2 question screen neg PROVIDED HM: High Blood Pressure in Adults: Screening Given: 126/80 PROVIDED HM: Colorectal Cancer: Screening Given: done two years ago ?? by Dr. Harper PROVIDED HM: Screening for Breast Cancer with Mammography (age 50-74 years) Given: done in the [facility] last year PROVIDED HM: Screening for Anxiety Given: Score of zero PROVIDED HM: CDSMP Given: "the obesity code", " the diabetes code", and "quide to fasting" also "the longevity solution" by Keanu Valdovinos MD You can download a Snapguide syeda to your computer and get these books on [employer]. Watch the movie "the magic pill" documentary on [email or web address] Also [employer] movie call " Fat" the documentary Google Keanu Valdovinos Podcast 50 [employer] and watch it You can also find many you tube videos by Dr. Valdovinos. Ask to join the "Keanu Valdovinos and Jacinda Vo obesity code support group" PROVIDED HM: Assess Adult Immunization Status Given: get your flushot [facility] and [facility] 13 Consider ENT eval. ORDERED/ADVISED: Order Date 02-16-2020 - Jason Lozano (ENT) (intermittent hoarseness) (F45.8, I10, E03.9, E78.49) ORDERED/ADVISED: Order Date 02-16-2020 - CBC with diff (automated) (F45.8, I10, E03.9, E78.49, M25.562, R73.03, Z00.00) - CMP (Complete Metabolic Panel) (F45.8, I10, E03.9, E78.49, M25.562, R73.03, Z00.00) - HGBA1C (F45.8, I10, E03.9, E78.49, M25.562, R73.03, Z00.00) - Lipid Panel (F45.8, I10, E03.9, E78.49, M25.562, R73.03, Z00.00) - TSH (F45.8, I10, E03.9, E78.49, M25.562, R73.03, Z00.00) ORDERED/ADVISED: Order Date 02-16-2020 - Jason Lozano (ENT) VITAL SIGNS Encounter Height (in) We ight (lb) BMI (kg/m2) BP Sys (mmHg) BP Ojeda (mmHg) Heart Rate (/min) O2 % BldC Oximetry O2 % BldC Oximetry (on O2) Body Temp erature Respiratory Rate (/min) Head Circumf OFC by Tape measure 02/16/2020 08:36:23 64 2 20 37.8 126 80 74 98 -- 99.3 F -- -- GOALS No Goals Information. HEALTH CONCERNS No health concerns information is available. MENTAL STATUS No Mental Status information.
--- OUTSIDE RECORDS SUMMARY | 2021-04-06 07:11 | CCD | Continuity of Care Document ---
Author Author KAILEY DAVE, Francine Gold Organization Unknown Address [address] [place] [id number] Phone [phone] Care Team Providers Care Floor Space Allocator Name Role Phone Zunilda Willson D.O. AUTM [phone] AUT[facility] Unavailable Francis Sinha M.D. [facility] [phone] Jason Lozano MD AUTM [phone] Problems Active Problems Provider Date Essential hypertension Yrn Harper M.D. Onset: 3 Obstructive sleep apnea syndrome RONY Puentes Onset: 09/15/2019 Screening for malignant neoplasm of colon Radha Ritter Onset: 01/27/2013 Hemorrhage of rectum and anus Yrn Harper M.D. Onset: Social History Type Date Description Comments Sex Unknown ETOH Use Sociable Tobacco Use Start: Unknown Patient has never smoked Recreational Drug Use Denies Drug Use Smoking Status Reviewed: 12/07/20 Patient has never smoked Allergies, Adverse Reactions, Alerts Description No Known Drug Allergies Medications Active Medications SIG Qnty Indications Ordering Provide r Date CPAP Device 7cm vadim Nick D.O. 10/26/2019 Levothyroxine Sodium 100mcg Tablet s 1 tab by mouth every day 30tabs Unknown Lisinopril 10mg Tablets 1 tab by mouth every day 30tabs Unknown Chlorthalidone 25mg Tablets 1 by mouth every day Unknown Metformin HCL ER 500mg Tablets ER 24HR 1 tab by mouth every day 60tabs Zunilda Willson DElinaOElina Albuterol Sulfate HFA 108(90Base) mcg/Act Aerosol Inhale Two Puffs By Mouth Four Times A Day as Needed For Wheeze Unknown Immunizations Description No Information Available Vital Signs Date Vital Result Comment 12/07/2020 3:09pm BP Systolic 138 mmHg BP Diastolic 72 mmHg Heart Rate 62 /min O2 % BldC Oximetry 97 % Height 64 inches 5'4" Weight 209.25 lb BMI (Body Mass Index) 35.9 kg/m2 [place] Body Weight 120 lb Weight 94.916 kg BSA (Body Surface Area) 1.99 m2 12/07/2020 1:48pm Height 64 inches 5'4" Weight 204.00 lb BMI (Body Mass Index) 35.0 kg/m2 [place] Body Weight 120 lb Weight 92.534 kg BSA (Body Surface Area) 1.97 m2 Results Description No Information Available Procedures Date Code Description Status 12/07/2020 59586 Office/Outpatient Established Mo d MDM 30-39 Min Completed 12/07/2020 34112 Office/Outpatient Established Lo w MDM 20-29 Min Completed Medical Devices Description No Information Available Encounters Type Date Location Provider Dx Diagnosis Office Visit 12/07/2020 1:30p [facility] Jason Lozano MD R13.10 Dysphagia, unspecified Office Visit 12/07/2020 3:30p [facility] Pulmonary/Thoracic RONY Puentes G47.33 Obstructive sleep apnea (adult) (pediatr ic) Assessments Date Code Description Provider 12/07/2020 G47.33 Obstructive sleep apnea (adult) (pediatric) RONY Puentes 12/07/2020 R13.10 Dysphagia, unspecified Jason perez MD Plan of Treatment Future Appointment(s):* 01/31/2021 1:00 pm - MAYRA Watson at [facility] * 06/12/2021 2:30 pm - RONY Puentes at [facility] Pulmonary/Thoracic 12/07/2020 - RONY Puentes* G47.33 Obstructive sleep apnea (adult) (pediatric) * * Follow up:* Follow up in 6 months with download Functional Status Functional Condition Comment Date Status Independent with all ADL's Activ e Mental Status Mental Condition Comment Date Status Cognitive ability not impaired A ctive Referrals Refer to Reason for Referral Status Appt Date Abilio Hart M.D. DYSPHAGIA Scheduled 01/31 [facility] [address], [address] [place] [address] [phone]
--- OUTSIDE RECORDS SUMMARY | 2021-04-06 07:11 | CCD ---
Author Author [facility] Organization [facility] Address Unknown Phone Unavailable Care Team Providers Care Neck Pinner Name Role Phone Charlebois, A Fabby RPA C Unavailable Unavailable Charlebois, A Fabby RPA C Unavailable Unavailable Charlebois, A Fabby RPA C Unavailable Unavailable Charlebois, A Fabby RPA C Unavailable Unavailable Charlebois, A Fabby RPA C Unavailable Unavailable Charlebois, A Fabby RPA C Unavailable Unavailable Charlebois, A Fabby RPA C Unavailable Unavailable Charlebois, A Fabby RPA C Unavailable Unavailable Charlebois, A Fabby RPA C Unavailable Unavailable Charlebois, A Fabby RPA C Unavailable Unavailable Charlebois, A Fabby RPA C Unavailable Unavailable Charlebois, A Fabby RPA C Unavailable Unavailable Charlebois, A Fabby RPA C Unavailable Unavailable Charlebois, A Fabby RPA C Unavailable Unavailable Charlebois, A Fabby RPA C Unavailable Unavailable Charlebois, A Fabby RPA C Unavailable Unavailable Charlebois, A Fabby RPA C Unavailable Unavailable Charlebois, A Fabby RPA C Unavailable Unavailable Charlebois, A Fabby RPA C Unavailable Unavailable Charlebois, A Fabby RPA C Unavailable Unavailable Charlebois, A Fabby RPA C Unavailable Unavailable Charlebois, A Fabby RPA C Unavailable Unavailable Charlebois, A Fabby RPA C Unavailable Unavailable Charlebois, A Fabby RPA C Unavailable Unavailable Charlebois, A Fabby RPA C Unavailable Unavailable Charlebois, A Fabby RPA C Unavailable Unavailable Charlebois, A Fabby RPA C Unavailable Unavailable Charlebois, A Fabby RPA C Unavailable Unavailable Charlebois, A Fabby RPA C Unavailable Unavailable Charlebois, A Fabby RPA C Unavailable Unavailable Charlebois, A Fabby RPA C Unavailable Unavailable Charlebois, A Fabby RPA C Unavailable Unavailable Charlebois, A Fabby RPA C Unavailable Unavailable Galvan, Marva BRASS FINISHER Unavailable Unavailable Galvan, Marva BRASS FINISHER Unavailable Unavailable Galvan, Marva BRASS FINISHER Unavailable Unavailable Galvan, Marva BRASS FINISHER Unavailable Unavailable Galvan, Marva BRASS FINISHER Unavailable Unavailable Galvan, Marva BRASS FINISHER Unavailable Unavailable Galvan, Marva BRASS FINISHER Unavailable Unavailable Galvan, Marva BRASS FINISHER Unavailable Unavailable Galvan, Marva BRASS FINISHER Unavailable Unavailable Galvan, Marva BRASS FINISHER Unavailable Unavailable Galvan, Marva BRASS FINISHER Unavailable Unavailable Galvan, Marva BRASS FINISHER Unavailable Unavailable Galvan, Marva BRASS FINISHER Unavailable Unavailable Galvan, Marva BRASS FINISHER Unavailable Unavailable Galvan, Marva BRASS FINISHER Unavailable Unavailable Galvan, Marva BRASS FINISHER Unavailable Unavailable Galvan, Marva BRASS FINISHER Unavailable Unavailable Galvan, Marva BRASS FINISHER Unavailable Unavailable Galvan, Marva BRASS FINISHER Unavailable Unavailable Galvan, Marva BRASS FINISHER Unavailable Unavailable Galvan, Marva BRASS FINISHER Unavailable Unavailable Galvan, Marva BRASS FINISHER Unavailable Unavailable Galvan, Marva BRASS FINISHER Unavailable Unavailable Galvan, Marva BRASS FINISHER Unavailable Unavailable Galvan, Marva BRASS FINISHER Unavailable Unavailable Galvan, Marva BRASS FINISHER Unavailable Unavailable Galvan, Marva BRASS FINISHER Unavailable Unavailable Galvan, Marva BRASS FINISHER Unavailable Unavailable Galvan, Marva BRASS FINISHER Unavailable Unavailable Galvan, Marva BRASS FINISHER Unavailable Unavailable Galvan, Marva BRASS FINISHER Unavailable Unavailable Galvan, Marva BRASS FINISHER Unavailable Unavailable Galvan, Marva BRASS FINISHER Unavailable Unavailable Galvan, Marva BRASS FINISHER Unavailable Unavailable Galvan, Marva BRASS FINISHER Unavailable Unavailable Galvan, Marva BRASS FINISHER Unavailable Unavailable Galvan, Marva BRASS FINISHER Unavailable Unavailable Galvan, Marva BRASS FINISHER Unavailable Unavailable Galvan, Marva BRASS FINISHER Unavailable Unavailable Galvan, Marva BRASS FINISHER Unavailable Unavailable Galvan, Marva BRASS FINISHER Unavailable Unavailable Galvan, Marva BRASS FINISHER Unavailable Unavailable Galvan, Marva BRASS FINISHER Unavailable Unavailable Galvan, Marva BRASS FINISHER Unavailable Unavailable Galvan, Marva BRASS FINISHER Unavailable Unavailable Galvan, Marva BRASS FINISHER Unavailable Unavailable Galvan, Marva BRASS FINISHER Unavailable Unavailable Galvan, Marva BRASS FINISHER Unavailable Unavailable ALESSIA, A AUGUST DO Unavailable Unavailable ALESSIA, A AUGUST DO Unavailable Unavailable ALESSIA, A AUGUST DO Unavailable Unavailable ALESSIA, A AUGUST DO Unavailable Unavailable ALESSIA, A AUGUST DO Unavailable Unavailable ALESSIA, A AUGUST DO Unavailable Unavailable ALESSIA, A AUGUST DO Unavailable Unavailable ALESSIA, A AUGUST DO Unavailable Unavailable ALESSIA, A AUGUST DO Unavailable Unavailable ALESSIA, A AUGUST DO Unavailable Unavailable ALESSIA, A AUGUST DO Unavailable Unavailable ALESSIA, A AUGUST DO Unavailable Unavailable ALESSIA, A AUGUST DO Unavailable Unavailable ALESSIA, A AUGUST DO Unavailable Unavailable ALESSIA, A AUGUST DO Unavailable Unavailable ALESSIA, A AUGUST DO Unavailable Unavailable ALESSIA, A AUGUST DO Unavailable Unavailable ALESSIA, A AUGUST DO Unavailable Unavailable ALESSIA, A AUGUST DO Unavailable Unavailable ALESSIA, A AUGUST DO Unavailable Unavailable ALESSIA, A AUGUST DO Unavailable Unavailable ALESSIA, A AUGUST DO Unavailable Unavailable ALESSIA, A AUGUST DO Unavailable Unavailable ALESSIA, A AUGUST DO Unavailable Unavailable ALESSIA, A AUGUST DO Unavailable Unavailable ALESSIA, A AUGUST DO Unavailable Unavailable ALESSIA, A AUGUST DO Unavailable Unavailable ALESSIA, A AUGUST DO Unavailable Unavailable ALESSIA, A AUGUST DO Unavailable Unavailable ALESSIA, A AUGUST DO Unavailable Unavailable ALESSIA, A AUGUST DO Unavailable Unavailable ALESSIA, A AUGUST DO Unavailable Unavailable ALESSIA, A AUGUST DO Unavailable Unavailable ALESSIA, A AUGUST DO Unavailable Unavailable ALESSIA, A AUGUST DO Unavailable Unavailable ALESSIA, A AUGUST DO Unavailable Unavailable ALESSIA, A AUGUST DO Unavailable Unavailable ALESSIA, A AUGUST DO Unavailable Unavailable ALESSIA, A AUGUST DO Unavailable Unavailable ALESSIA, A AUGUST DO Unavailable Unavailable ALESSIA, A AUGUST DO Unavailable Unavailable ALESSIA, A AUGUST DO Unavailable Unavailable ALESSIA, A AUGUST DO Unavailable Unavailable ALESSIA, A AUGUST DO Unavailable Unavailable ALESSIA, A AUGUST DO Unavailable Unavailable ALESSIA, A AUGUST DO Unavailable Unavailable ALESSIA, A AUGUST DO Unavailable Unavailable ALESSIA, A AUGUST DO Unavailable Unavailable ALESSIA, A AUGUST DO Unavailable Unavailable ALESSIA, A AUGUST DO Unavailable Unavailable ALESSIA, A AUGUST DO Unavailable Unavailable ALESSIA, A AUGUST DO Unavailable Unavailable ALESSIA, A AUGUST DO Unavailable Unavailable ALESSIA, A AUGUST DO Unavailable Unavailable ALESSIA, A AUGUST DO Unavailable Unavailable ALESSIA, A AUGUST DO Unavailable Unavailable ALESSIA, A AUGUST DO Unavailable Unavailable ALESSIA, A AUGUST DO Unavailable Unavailable ALESSIA, A AUGUST DO Unavailable Unavailable ALESSIA, A AUGUST DO Unavailable Unavailable ALESSIA, A AUGUST DO Unavailable Unavailable ALESSIA, A AUGUST DO Unavailable Unavailable ALESSIA, A AUGUST DO Unavailable Unavailable ALESSIA, A AUGUST DO Unavailable Unavailable WRAY, M GEMA PA Unavailable Unavailable WRAY, M GEMA PA Unavailable Unavailable WRAY, M GEMA PA Unavailable Unavailable WRAY, M GEMA PA Unavailable Unavailable WRAY, M GEMA PA Unavailable Unavailable WRAY, M GEMA PA Unavailable Unavailable WRAY, M GEMA PA Unavailable Unavailable WRAY, M GEMA PA Unavailable Unavailable WRAY, M GEMA PA Unavailable Unavailable WRAY, M GEMA PA Unavailable Unavailable WRAY, M GEMA PA Unavailable Unavailable WRAY, M GEMA PA Unavailable Unavailable WRAY, M GEMA PA Unavailable Unavailable WRAY, M GEMA PA Unavailable Unavailable WRAY, M GEMA PA Unavailable Unavailable WRAY, M GEMA PA Unavailable Unavailable WRAY, M GEMA PA Unavailable Unavailable WRAY, M GEMA PA Unavailable Unavailable WRAY, M GEMA PA Unavailable Unavailable WRAY, M GEMA PA Unavailable Unavailable WRAY, M GEMA PA Unavailable Unavailable WRAY, M GEMA PA Unavailable Unavailable WRAY, M GEMA PA Unavailable Unavailable WRAY, M GEMA PA Unavailable Unavailable WRAY, M GEMA PA Unavailable Unavailable WRAY, M GEMA PA Unavailable Unavailable WRAY, M GEMA PA Unavailable Unavailable WRAY, M GEMA PA Unavailable Unavailable WRAY, M GEMA PA Unavailable Unavailable WRAY, M GEMA PA Unavailable Unavailable WRAY, M GEMA PA Unavailable Unavailable WRAY, M GEMA PA Unavailable Unavailable WRAY, M GEMA PA Unavailable Unavailable WRAY, M GEMA PA Unavailable Unavailable WRAY, M GEMA PA Unavailable Unavailable Keesha BONNER MD Unavailable Unavailable Keesha BONNER MD Unavailable Unavailable Keesha BONNER MD Unavailable Unavailable Keesha BONNER MD Unavailable Unavailable Keesha BONNER MD Unavailable Unavailable Keesha BONNER MD Unavailable Unavailable Keesha BONNER MD Unavailable Unavailable KAILEY, C ALOK MD Unavailable Unavailable KAILEY, C ALOK MD Unavailable Unavailable KAILEY, C ALOK MD Unavailable Unavailable KAILEY, C ALOK MD Unavailable Unavailable KAILEY, C ALOK MD Unavailable Unavailable KAILEY, C ALOK MD Unavailable Unavailable KAILEY, C ALOK MD Unavailable Unavailable KAILEY, C ALOK MD Unavailable Unavailable KAILEY, C ALOK MD Unavailable Unavailable KAILEY, C ALOK MD Unavailable Unavailable KAILEY, C ALOK MD Unavailable Unavailable KAILEY, C ALOK MD Unavailable Unavailable KAILEY, C ALOK MD Unavailable Unavailable KAILEY, C ALOK MD Unavailable Unavailable KAILEY, C ALOK MD Unavailable Unavailable KAILEY, C ALOK MD Unavailable Unavailable KAILEY, C ALOK MD Unavailable Unavailable KAILEY, C ALOK MD Unavailable Unavailable KAILEY, C ALOK MD Unavailable Unavailable KAILEY, C ALOK MD Unavailable Unavailable KAILEY, C ALOK MD Unavailable Unavailable KAILEY, C ALOK MD Unavailable Unavailable KAILEY, C ALOK MD Unavailable Unavailable KAILEY, C ALOK MD Unavailable Unavailable KAILEY, C ALOK MD Unavailable Unavailable KAILEY, C ALOK MD Unavailable Unavailable KAILEY, C ALOK MD Unavailable Unavailable Re-disclosure Warning The records that you are about to access may contain information from federally-assisted alcohol or drug abuse programs. If such information is present, then the following federally mandated warning applies: This information has been disclosed to you from records protected by federal confidentiality rules (42 CFR part 2). The federal rules prohibit you from making any further disclosure of this information unless further disclosure is expressly permitted by the written consent of the person to whom it pertains or as otherwise permitted by 42 CFR part 2. A general authorization for the release of medical or other information is NOT sufficient for this purpose. The Federal rules restrict any use of the information to criminally investigate or prosecute any alcohol or drug abuse patient.The records that you are about to access may contain highly sensitive health information, the redisclosure of which is protected by Article 27-F of the [facility] Public Health law. If you continue you may have access to information: Regarding HIV / AIDS; Provided by facilities licensed or operated by the [facility] Office of Mental Health; or Provided by the [facility] Office for People With Developmental Disabilities. If such information is present, then the following [facility] mandated warning applies: This information has been disclosed to you from confidential records which are protected by state law. State law prohibits you from making any further disclosure of this information without the specific written consent of the person to whom it pertains, or as otherwise permitted by law. Any unauthorized further disclosure in violation of state law may result in a fine or retirement sentence or both. A general authorization for the release of medical or other information is NOT sufficient authorization for further disc losure. Family History Family Member Name Family Member Gender Family Member Status Date o f Status Description Data Source(s) Unknown Male Problem [facility] ([facility], ) Encounters Encounter Providers Location Date Indications Data Source(s ) Outpatient Attender: AUGUST Mayer: AUGUST AGGARWAL DO EMERGENCY ROOM-LABOTHPROV 02/28/2021 08:43:00 AM EDT - 02/28/2021 08:43:00 AM [facility] Outpatient Attender: Fabby Bonner/Stephenson/A osmar/Reindl 01/31/2021 01:00:00 PM EDT [facility] ([facility] Matias rahman ) Preadmit Attender: AUGUST AGGARWAL DO 12/26/2020 09:50:00 A M [facility] Outpatient Attender: GEMA Bonner/Anil/Nathan/Rein dl 12/07/2020 03:30:00 PM EDT MED[facility] ([facility], ) Outpatient Attender: ALOK Bonner/Anil/Nathan/Reind l 12/07/2020 01:30:00 PM EDT [facility] ([facility], ) Outpatient Attender: AUGUST Mayer: AUGUST AGGARWAL DO EMERGENCY ROOM-LABOTHPROV 06/29/2020 08:05:[address] [facility] - 06/29/2020 08:05:00 AM [facility] Outpatient Attender: AUGUST Gudino: AUGUST AGGARWAL DO EMERGENCY ROOM-LABOTHPROV 03/20/2020 09:51:00 AM EST - 03/20/2020 09:51:00 AM [facility] Outpatient Attender: ALOK Summerser: Marva Galvan [facility] EMERGENCY ROOM-LABOTHPROV 03/20/2020 09:49:00 AM EST - 03/20/2020 09:49:00 AM [facility] Outpatient Attender: GEMA Bonner/Anil/Nathan/Luiza alvarez 02/15/2020 01:00:00 PM EDT [facility] ([facility]) Outpatient Attender: Marva Galvan BRASS FINISHER 02/05 08:00:00 AM EDT - 02/05/2018 08:00:00 AM [facility] Outpatient Attender: Marva Galvan [facility] 01/29/2018 08:00:00 AM [facility] Immunizations Vaccine Date Status Description Data Source(s) COVID-19 VACCINE Moderna 07/25/2020 12:00:00 AM EST completed [facility] Vaccine Series Complete: YESThis Data wa s Submitted to [facility] Via [employer] COVID-19 VACCINE, MRNA-1273, LNP-S (MODERNA)/PF 07/25/2020 1 2:00:00 AM EST completed [facility] COVID-19 VACCINE Moderna 06/27/2020 12:00:00 AM EST completed [facility] Vaccine Series Complete: NOThis Data was Submitted to [facility] Via [employer] COVID-19 VACCINE, MRNA-1273, LNP-S (MODERNA)/PF 06/27/2020 1 2:00:00 AM EST completed [facility] Medications Medication Brand Name Start Date Product Form Dose Route Admi nistrative Instructions Pharmacy Instructions Status Indications Reaction Description Data Source(s) Clenpiq Clenpiq 01/31/2021 12:00:00 AM EDT active [facility] ([facility]) Bisacodyl 5 MG Delayed Release Oral Tablet [Dulcolax] Dulcol ax 01/31/2021 12:00:00 AM EDT ORAL active M EDENT ([facility], ) Naproxen 500 MG Delayed Release Oral Tablet NAPROXEN 11/18 12:00:00 AM EDT tablet,delayed release (DR/EC) 60 TAKE ONE TABLET BY MOUTH TWICE A DAY WITH FOOD TAKE ONE TABLET BY MOUTH TWICE A DAY WITH FOOD SOLD: 12/16/2020 [facility] Cyclobenzaprine hydrochloride 10 MG Oral Tablet CYCLOBENZAPR INE HCL 12/13/2020 12:00:00 AM EDT tablet 30 TAKE ONE TABLET BY MOUTH THREE TIMES A DAY NEEDED FOR MUSCLE SPASM TAKE ONE TABLET BY MOUTH THREE TIMES A D AY NEEDED FOR MUSCLE SPASM SOLD: 12/13/2020 [facility] 100 mcg 06/07/2020 12:00:00 AM EST tablet 90 TAKE ONE TABLET BY MOUTH EVERY DAY TAKE ONE TABLET BY MOUTH EVERY DAY SOLD: 06/08/2020 [facility] 100 mcg 06/07/2020 12:00:00 AM EST tablet 90 TAKE ONE TABLET BY MOUTH EVERY DAY TAKE ONE TABLET BY MOUTH EVERY DAY SOLD: 08/19/2020 [facility] 100 mcg 06/07/2020 12:00:00 AM EST tablet 90 TAKE ONE TABLET BY MOUTH EVERY DAY TAKE ONE TABLET BY MOUTH EVERY DAY SOLD: 01/11/2021 [facility] 100 mcg 04/28/2020 12:00:00 AM EST tablet 45 TAKE 1 TABLET BY MOUTH EVERY OTHER DAY ALTERNATING WITH 125 MCG TAKE 1 TABLET BY MOUTH EVERY OTHER DAY ALTERNATING WITH 125 MCG SOLD: 05/02/2020 [facility] 90 mcg/actuation 03/29/2020 12:00:00 AM EST HFA aerosol inha ler 8 INHALE TWO PUFFS BY MOUTH FOUR TIMES A DAY NEEDED FOR WHEEZE INHALE TWO PUFFS BY MOUTH FOUR TIMES A DAY NEEDED FOR WHEEZE SOLD: 03/29/2020 [facility] Insurance Providers Payer name Policy type / Coverage type Policy ID Covered libertarian ID Covered libertarian's relationship to mello Policy Mello Plan Information [facility] [id number] [facility] [id number] [facility] [id number] [facility] [id number] MEDICARE COMPLETE [id number] SP [id number] [facility] MEDICARE [id number] S [id number] [facility] MEDICARE [id number] S [id number] [facility] MEDICARE [id number] S [id number] [facility] 1 [id number] [facility] MEDICARE [id number] S [id number] [facility] MEDICARE [id number] S [id number] [facility] MEDICARE [id number] S [id number] [facility] Medicare Commercial [id number] Self [id number] [facility] DUAL COMPLET [place] [id number] S [id number] [employer] [place] [id number] S [id number] [employer] [place] [id number] S [id number] [employer] [employer]-BS PPO 306 [id number] SP [id number] MEDICARE COMPLETE [id number] SP [id number] MEDICARE COMPLETE-[facility] O [id number] S [id number] MEDICARE COMPLETE [id number] SP [id number] ANSI-Medicare Part B [id number] UNITED HE[employer]CARE MEDICARE [id number] S [id number] ANSIMedicare Part [id number] ANSI-Medicare Part B [id number] ANSI-Medicare Part B [id number] ANSI-Medicare Part [id number] Problems, Conditions, and Diagnoses Code Display Name Description Problem Type Effective Dates Data Source(s) R73.03 PREDIABETES PREDIABETES Diagnosis 02/28/2021 08:43:00 AM [facility] M25.562 Pain in left knee PAIN IN LEFT KNEE Diagnosis 02/28 08:43:00 AM [facility] E78.49 OTHER HYPERLIPIDEMIA OTHER HYPERLIPIDEMIA Diagnosis 02/28/2021 08:43:00 AM [facility] E03.9 Hypothyroidism, unspecified HYPOTHYROIDISM, UNSPECIFIE D Diagnosis 02/28/2021 08:43:00 AM [facility] I10 Essential (primary) hypertension ESSENTIAL (PRIMARY) H YPERTENSION Diagnosis 02/28/2021 08:43:00 AM [facility] 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 OTHER SOMATOFORM DISORDERS Diagnosis 02/28/2021 08:43:00 AM [facility] E11.9 Type 2 diabetes mellitus without complic ations TYPE 2 DIABETES MELLITUS WITHOUT COMPLICATIONS Diagnosis 06/29/2020 08:05:00 AM [facility] lilia Z00.00 Encounter for general adult medical examination without abnormal findings ENCNTR FOR GENERAL ADULT MEDICAL EXAM W/ Diagnosis 020 09:51:00 AM [facility] Surgeries/Procedures Procedure Description Date Indications Data Source(s) OFFICE OUTPATIENT NEW 45 MINUTES 01/31/2021 12:00:00 A M EDT [facility] ([facility], ) OFFICE OUTPATIENT VISIT 15 MINUTES 12/07/2020 12:00:00 AM EDT [facility] ([facility], ) OFFICE OUTPATIENT VISIT 25 MINUTES 12/07/2020 12:00:00 AM EDT [facility] ([facility]) Results ID Date Data Source [id number] 02/28/2021 10:16:00 AM [facility] l FAX [phone] Name Value Range Interpretation Code Description Data Naheed rce(s) Supporting Document(s) TSH 2.808 uIU/mL 0.358-3.74 [facility] ID Date Data Source [id number] 02/28/2021 09:50:00 AM [facility] l FAX [phone] Name Value Range Interpretation Code Description Data Naheed rce(s) Supporting Document(s) CHOLESTEROL 238 mg/dL 0-200 H [facility] TRIGLYCERIDES 215 mg/dL 0-150 H [facility] LDL CHOLESTEROL 148 mg/dL 0-100 H [facility] HDL CHOLESTEROL 47 mg/dL 40-60 [facility] CHOL/HDL RATIO 5.1 0.0-5.0 H [facility] ID Date Data Source [id number] 02/28/2021 09:50:00 AM [facility] l FAX [phone] Name Value Range Interpretation Code Description Data Naheed rce(s) Supporting Document(s) GLUCOSE 119 mg/dL 74-106 H [facility] BLOOD UREA NITROGEN 14 mg/dL 7-18 [facility] ital CREATININE 0.90 mg/dL 0.6-1.0 [facility] SODIUM 140 mmol/L 136-145 [facility] POTASSIUM 4.2 mmol/L 3.5-5.1 [facility] CHLORIDE 103 mmol/L 98-107 [facility] CO2 29 mmol/L 21-32 [facility] CALCIUM 9.4 mg/dL 8.5-10.1 [facility] ANION GAP 8.0 mmol/L 5-12 [facility] GLOMERULAR FILTRATION RATE 62 mL/min [facility] GFR IS CALCULATED IN mL/min/1.73m2 MARLA L FUNCTION: >90MILDLY DECREASED: 60-89MILDY TO MODERATELY DECREASED: 45-59 MODERATELY TO SEVERELY DECREASED: 30-44SEVERELY DECREASED: 15-29RENAL FAILURE: <15 AST 17 U/L 15-37 [facility] ALT 47 U/L 12-78 [facility] ALKALINE PHOSPHATASE 77 U/L 46-116 [facility] TOTAL BILIRUBIN 0.4 mg/dL 0.2-1.0 [facility] TOTAL PROTEIN 7.6 g/dl 6.4-8.2 [facility] ALBUMIN 4.0 gm/dL 3.4-5.0 [facility] ID Date Data Source [id number] 02/28/2021 09:21:00 AM EDT [facility] FAX [phone] Name Value Range Interpretation Code Description Data [facility](s) Supporting Document(s) WHITE BLOOD COUNT 7.4 K/mm3 4.0-10.0 [facility] al RED BLOOD COUNT 4.98 M/mm3 4.00-5.50 [facility] HEMOGLOBIN 14.5 gm/dL 12.0-16.0 [facility] HEMATOCRIT 42.6 % 36.0-48.8 [facility] MEAN CELL VOLUME 85.5 fl 80-96 [facility] MEAN CORPUSCULAR HEMOGLOBIN 29.1 pg 27.0-31.0 [facility] MEAN CORPUSCULAR HGB CONC 34.0 g/dl 32.0-36.0 [facility] RED CELL DISTRIBUTION WIDTH 13.6 % 10.0-14.5 [facility] PLATELET COUNT 354 K/mm3 172-450 [facility] MEAN PLATELET VOLUME 9.3 fl 9.0-13.0 [facility] GRAN % 50.1 % 50-80.0 [facility] IG% 0.5 % 0.0-0.2 [facility] LYMPH % 37.8 % 25.0-50.0 [facility] MONO % 6.2 % 2.0-10.0 [facility] EOS % 4.9 % 0-5.0 [facility] BASO % 0.5 % 0.0-2.0 [facility] GRAN # 3.7 K/mm3 2.0-8.00 [facility] IG# 0.0 K/mm3 0.0-0.2 [facility] LYMPH # 2.8 K/mm3 1.0-5.0 [facility] MONO # 0.5 K/mm3 0.10-1.20 [facility] EOS # 0.4 K/mm3 0.0-0.5 [facility] BASO # 0.0 K/mm3 0.0-0.2 [facility] ID Date Data Source [id number] 06/29/2020 08:55:00 AM EST [facility] Name Value Range Interpretation Code Description Data Naheed rce(s) Supporting Document(s) TSH 0.307 uIU/mL 0.360-3.740 [facility] ID Date Data Source [id number] 06/29/2020 08:30:00 AM EST [facility] Name Value Range Interpretation Code Description Data Naheed rce(s) Supporting Document(s) HGBA1C 6.3 % 3.8-5.6 H [facility] Diabetic > or = to 6.5%Prediabetes 5.7-6 .4%Normal <5.7 ESTIMATED AVERAGE GLUCOSE 134.1 mg/dL [facility] ID Date Data Source [id number] 03/20/2020 10:33:00 AM EST [facility] FAX [phone] Name Value Range Interpretation Code Description Data Naheed rce(s) Supporting Document(s) CREATININE 1.0 mg/dL 0.6-1.0 [facility] ID Date Data Source [id number] 03/20/2020 10:33:00 AM EST [facility] FAX [phone] Name Value Range Interpretation Code Description Data Naheed rce(s) Supporting Document(s) GLOMERULAR FILTRATION RATE 55 mL/min [facility] GFR IS CALCULATED IN mL/min/1.73m2 MARLA L FUNCTION: >90MILDLY DECREASED: 60-89MILDY TO MODERATELY DECREASED: 45-59 MODERATELY TO SEVERELY DECREASED: 30-44SEVERELY DECREASED: 15-29RENAL FAILURE: <15 ID Date Data Source [id number] 03/20/2020 10:33:00 AM EST [facility] [id number] Name Value Range Interpretation Code Description Data Naheed rce(s) Supporting Document(s) BLOOD UREA NITROGEN 16 mg/dL 7-18 [facility] ital ID Date Data Source [id number] 03/20/2020 10:45:00 AM EST [facility] Name Value Range Interpretation Code Description Data Naheed rce(s) Supporting Document(s) HGBA1C 6.5 % 3.8-5.6 [facility] Diabetic > or = to 6.5%Prediabetes 5.7-6 .4%Normal <5.7 ID Date Data Source [id number] 03/20/2020 10:45:00 AM EST [facility] Name Value Range Interpretation Code Description Data Naheed rce(s) Supporting Document(s) ESTIMATED AVERAGE GLUCOSE 139.9 mg/dL [facility] ID Date Data Source [id number] 03/20/2020 10:39:00 AM EST [facility] Name Value Range Interpretation Code Description Data Naheed rce(s) Supporting Document(s) TSH 0.25 uIU/mL 0.36-3.74 [facility] ID Date Data Source [id number] 03/20/2020 10:39:00 AM [facility] Name Value Range Interpretation Code Description Data Naheed rce(s) Supporting Document(s) GLUCOSE 117 mg/dL 74-106 [facility] BLOOD UREA NITROGEN 16 mg/dL 7-18 [facility] ital CREATININE 1.0 mg/dL 0.6-1.0 [facility] SODIUM 141 mmol/L 136-145 [facility] POTASSIUM 4.6 mmol/L 3.5-5.1 [facility] CHLORIDE 103 mmol/L 98-107 [facility] CO2 29 mmol/L 21-32 [facility] CALCIUM 9.8 mg/dL 8.5-10.1 [facility] ANION GAP 9.0 mmol/L 5-12 [facility] GLOMERULAR FILTRATION RATE 55 mL/min [facility] GFR IS CALCULATED IN mL/min/1.73m2 MARLA L FUNCTION: >90MILDLY DECREASED: 60-89MILDY TO MODERATELY DECREASED: 45-59 MODERATELY TO SEVERELY DECREASED: 30-44SEVERELY DECREASED: 15-29RENAL FAILURE: <15 AST 22 U/L 15-37 [facility] ALT 45 U/L 12-78 [facility] ALKALINE PHOSPHATASE 79 U/L 46-116 [facility] TOTAL BILIRUBIN 0.4 mg/dL 0.2-1.0 [facility] TOTAL PROTEIN 7.7 g/dl 6.4-8.2 [facility] ALBUMIN 4.1 gm/dL 3.4-5.0 [facility] ID Date Data Source [id number] 03/20/2020 10:39:00 AM [facility] Name Value Range Interpretation Code Description Data Naheed rce(s) Supporting Document(s) CHOLESTEROL 230 mg/dL 0-200 [facility] TRIGLYCERIDES 219 mg/dL 0-150 [facility] LDL CHOLESTEROL 146 mg/dL 0-100 [facility] HDL CHOLESTEROL 40 mg/dL 40-60 [facility] CHOL/HDL RATIO 5.8 0.0-5.0 [facility] ID Date Data Source [id number] 03/20/2020 10:25:00 AM [facility] Name Value Range Interpretation Code Description [facility] Supporting Document(s) WHITE BLOOD COUNT 6.5 K/mm3 4.0-10.0 [facility] al RED BLOOD COUNT 4.96 M/mm3 4.00-5.50 [facility] HEMOGLOBIN 14.3 gm/dL 12.0-16.0 [facility] HEMATOCRIT 43.0 % 36.0-48.8 [facility] MEAN CELL VOLUME 86.7 fl 80-96 [facility] MEAN CORPUSCULAR HEMOGLOBIN 28.8 pg 27.0-31.0 [facility] MEAN CORPUSCULAR HGB CONC 33.3 g/dl 32.0-36.0 [facility] RED CELL DISTRIBUTION WIDTH 13.2 % 10.0-14.5 [facility] PLATELET COUNT 354 K/mm3 172-450 [facility] MEAN PLATELET VOLUME 9.4 fl 9.0-13.0 [facility] pital GRAN % 48.4 % 50-80.0 [facility] IG% 0.6 % 0.0-0.2 [facility] LYMPH % 39.1 % 25.0-50.0 [facility] MONO % 6.9 % 2.0-10.0 [facility] EOS % 4.5 % 0-5.0 [facility] BASO % 0.5 % 0.0-2.0 [facility] GRAN # 3.1 K/mm3 2.0-8.00 [facility] IG# 0.0 K/mm3 0.0-0.2 [facility] LYMPH # 2.5 K/mm3 1.0-5.0 [facility] MONO # 0.5 K/mm3 0.10-1.20 [facility] EOS # 0.3 K/mm3 0.0-0.5 [facility] BASO # 0.0 K/mm3 0.0-0.2 [facility] Procedure Social History Code Duration Value Status Description Data Source(s ) Smoking 12/07/2020 12:00:00 AM EDT Patient has never smoked co mpleted Patient has never smoked [facility] ([facility]) Smoking 02/15/2020 12:00:00 AM EDT Non Smoker completed [facility] Vital Signs ID Date Data Source UNK Name Value Range Interpretation Code Description Data Source(s) Systolic blood pressure 140 mm[Hg] 140 mm[Hg] M [facility] ([facility]) Body height 64 [in_i] 64 [in_i] [facility] ([facility]) 5'4" Body weight 208.00 [lb_av] 208.00 [lb_av] [facility] Diastolic blood pressure 72 mm[Hg] 72 mm[Hg] [facility] ([facility]) Body weight 94.349 kg 94.349 kg [facility] ([facility]) Body mass index (BMI) [Ratio] 35.7 kg/m2 35.7 k g/m2 [facility] ([facility]) [place] body weight 120 [lb_av] 120 [lb_av] [facility] Body surface area Derived from formula 1.99 m2 1.99 m2 [facility] ([facility]) Oxygen saturation in Arterial blood by Pulse oximetry 97 % 97 % [facility] ([facility]) Body mass index (BMI) [Ratio] 35.9 kg/m2 35.9 k g/m2 [facility] ([facility]) Diastolic blood pressure 72 mm[Hg] 72 mm[Hg] [facility] ([facility]) [place] body weight 120 [lb_av] 120 [lb_av] [facility] ([facility]) Systolic blood pressure 138 mm[Hg] 138 mm[Hg] [facility] ([facility]) Heart rate 62 /min 62 /min [facility] ([facility]) Body height 64 [in_i] 64 [in_i] [facility] ([facility]) 5'4" Body weight 209.25 [lb_av] 209.25 [lb_av] [facility] Body weight 94.916 kg 94.916 kg [facility] ([facility]) Body surface area Derived from formula 1.99 m2 1.99 m2 [facility] ([facility]) Body height 64 [in_i] 64 [in_i] [facility] ([facility]) 5'4" Body weight 204.00 [lb_av] 204.00 [lb_av] [facility] [place] body weight 120 [lb_av] 120 [lb_av] [facility] Body weight 92.534 kg 92.534 kg [facility] ([facility]) Body surface area Derived from formula 1.97 m2 1.97 m2 [facility] ([facility]) Body mass index (BMI) [Ratio] 35.0 kg/m2 35.0 k g/m2 [facility] ([facility]) Systolic blood pressure 134 mm[Hg] 134 mm[Hg] [facility] ([facility]) Diastolic blood pressure 70 mm[Hg] 70 mm[Hg] [facility] ([facility]) Heart rate 61 /min 61 /min [facility] ([facility]) Oxygen saturation in Arterial blood by Pulse oximetry 98 % 98 % [facility] ([facility]) Body temperature 98.0 [degF] 98.0 [degF] [facility] ([facility]) Body height 64 [in_i] 64 [in_i] [facility] ([facility]) 5'4" Body weight 203.00 [lb_av] 203.00 [lb_av] [facility] ([facility]) Body mass index (BMI) [Ratio] 34.8 kg/m2 34.8 k g/m2 [facility] ([facility]) [place] body weight 120 [lb_av] 120 [lb_av] [facility] ([facility]) Body weight 92.081 kg 92.081 kg [facility] ([facility]) Body surface area Derived from formula 1.97 m2 1.97 m2 [facility] ([facility]) Body height 64 [in_i] 64 [in_i] [facility] ([facility]) 5'4" Body weight 218.00 [lb_av] 218.00 [lb_av] [facility] ([facility]) Body mass index (BMI) [Ratio] 37.4 kg/m2 37.4 k g/m2 [facility] ([facility]) [place] body weight 120 [lb_av] 120 [lb_av] [facility] Body weight 98.885 kg 98.885 kg [facility] ([facility]) Systolic blood pressure 146 mm[Hg] 146 mm[Hg] [facility] Diastolic blood pressure 78 mm[Hg] 78 mm[Hg] [facility] ([facility]) Heart rate 70 /min 70 /min [facility] ([facility]) Oxygen saturation in Arterial blood by Pulse oximetry 96 % 96 % [facility] ([facility]) Body temperature 98.2 [degF] 98.2 [degF] [facility] ([facility]) Body height 64 [in_i] 64 [in_i] [facility] ([facility]) 5'4" Body weight 220.50 [lb_av] 220.50 [lb_av] [facility], ) Body mass index (BMI) [Ratio] 37.8 kg/m2 37.8 k g/m2 [facility] ([facility], ) [place] body weight 120 [lb_av] 120 [lb_av] [facility], ) Body weight 100.019 kg 100.019 kg [facility] ([facility], )
--- OUTSIDE RECORDS SUMMARY | 2021-04-06 07:11 | CCD | Continuity of Care Document ---
Author Author Francine VU [facility] Organization Unknown Address [address] [place] [address], [address] [place] [address] Phone [phone] Care Team Providers Care Steam Fitter Helper Name Role Phone Zunilda Willson D.O. [facility] [phone] [facility] Unavailable Francis Sinha M.D. [facility] [phone] Jason Lozano MD [facility] Problems Active Problems [...] 320ml Z86.0 10 Francis Sinha MD 01/31/2021 CPAP Device 7cm [...] lb BMI (Body Mass Index) 35.7 kg/m2 [place] Body Weight 120 lb Weight 94.349 kg BSA (Body Surface Area) 1.99 m2 12/07/2020 3:09pm BP Systolic 138 mmHg BP Diastolic 72 mmHg Heart Rate 62 /min O2 % BldC Oximetry 97 % Height 64 inches 5'4" Weight 209.25 lb BMI (Body Mass Index) 35.9 kg/m2 [place] Body Weight 120 lb Weight 94.916 kg BSA (Body Surface Area) 1.99 m2 Results Description No Information Available Procedures Date Code Description Status 12/07/2020 26979 Office/Outpatient Established Mo d MDM 30-39 Min Completed 12/07/2020 92441 Office/Outpatient Established Lo w MDM 20-29 Min Completed Medical Devices Description No Information Available Encounters Type Date Location Provider Dx Diagnosis Office Visit 12/07/2020 1:30p [facility] Jason Lozano MD R13.10 Dysphagia, unspecified Office Visit 12/07/2020 3:30p [facility] Pulmonary/Thoracic RONY Puentes G47.33 Obstructive sleep apnea (adult) (pediatr ic) Assessments Date Code Description Provider 01/31/2021 R13.10 Dysphagia, unspecified Fabby Vu RPA-C 01/31/2021 Z86.010 Personal history of colonic poly ps Fabby Vu RPA-C 12/07/2020 G47.33 Obstructive sleep apnea (adult) (pediatric) RONY Puentes 12/07/2020 R13.10 Dysphagia, unspecified Jason perez MD Plan of Treatment Future Appointment(s):* 06/12/2021 2:30 pm - RONY Puentes at [facility] Pulmonary/Thoracic 01/31/2021 - Fabby uV, RPA-C* R13.10 Dysphagia, unspecified * Z86.010 Personal history [...] Date Abilio Hart M.D. DYSPHAGIA Scheduled 01/31 [facility] [address] [facility], [address] [place] [address] [phone]
[2021-04-06] MEDS ORDERED: propofoL 200 MG/20 ML VIAL As Ordered ONE (07:26)
[2021-04-06] MEDS ORDERED: LIDOCAINE 2% 100MG/5ML SDV (FOR ANES.) As Ordered ONE (07:26)
[2021-04-06] MEDS ORDERED: fentaNYL 100 MCG/2 ML INJECTION (J3010) As Ordered ONE (07:27)
[2021-04-06] MEDS ORDERED: PHENYLephrine 500MCG 5ML (100MCG/ML) SYRINGE As Ordered ONE ×2 (07:58→08:18)
[2021-04-06] MEDS ORDERED: ePHEDrine SULFATE 25 MG/5 ML(5MG/ML) SYRINGE As Ordered ONE (07:59)
--- NOTE | 2021-04-06 08:33 | ROOR ---
Patient Name: Francine Muir Procedure Date: 04/06/2021 7:38 AM Date of : 1950 Age: 70 Room: [facility] Gender: Female Note Status: Finalized Procedure: Upper GI endoscopy Indications: Dysphagia Providers: Abilio Hart MD Referring MD: Zunilda Willson DO Requesting Provider: Medicines: Monitored Anesthesia Care Complications: No immediate complications. Procedure: Pre-Anesthesia Assessment: - Prior to the procedure, a History and Physical was performed, and patient medications and allergies were reviewed. The patient is competent. The risks and benefits of the procedure and the sedation options and risks were discussed with the patient. All questions were answered and informed consent was obtained. Patient identification and proposed procedure were verified by the physician, the nurse and the anesthesiologist in the procedure room. Mental Status Examination: alert and oriented. Airway Examination: normal oropharyngeal airway and neck mobility. Respiratory Examination: clear to auscultation. CV Examination: normal. Prophylactic Antibiotics: The patient does not require prophylactic antibiotics. Prior Anticoagulants: The patient has taken no previous anticoagulant or antiplatelet agents. ASA Grade Assessment: II - A patient with mild systemic disease. After reviewing the risks and benefits, the patient was deemed in satisfactory condition to undergo the procedure. The anesthesia plan was to use moderate sedation / analgesia (conscious sedation). Immediately prior to administration of medications, the patient was re-assessed for adequacy to receive sedatives. The heart rate, respiratory rate, oxygen saturations, blood pressure, adequacy of pulmonary ventilation, and response to care were monitored throughout the procedure. The physical status of the patient was re-assessed after the procedure. The Endoscope was introduced through the mouth, and advanced to the second part of duodenum. The upper GI endoscopy was accomplished without difficulty. The patient tolerated the procedure well. Findings: Mucosal changes including longitudinal furrows, small-caliber esophagus, white plaques and stenosis were found in the middle third of the esophagus and in the lower third of the esophagus. Biopsies were obtained from the proximal and distal esophagus with cold forceps for histology of suspected eosinophilic esophagitis. Verification of patient identification for the specimen was done by the physician and nurse using the patient's name, date and medical record number. Estimated blood loss was minimal. Scattered moderate inflammation characterized by erythema and granularity was found in the gastric body and in the gastric antrum. Biopsies were taken with a cold forceps for Helicobacter pylori testing. The duodenal bulb and second portion of the duodenum were normal. Impression: - Esophageal mucosal changes suggestive of eosinophilic esophagitis. Biopsied. - Gastritis. Biopsied. - Normal duodenal bulb and second portion of the duodenum. Recommendation: - Patient has a contact number available for emergencies. The signs and symptoms of potential delayed complications were discussed with the patient. Return to normal activities tomorrow. Written discharge instructions were provided to the patient. - High fiber diet. - Avoid the food allergens. Follow Six Food Elimination Diet ( Avoid -- milk, soy, eggs, wheat, peanuts/tree nuts, and seafood), until allergy testing is done. - Continue present medications. - Await pathology results. - Return to GI clinic in [facility] (address: [address] [place] [address], [address] [place] [address], [place], [place],[address]) in 4 -- 6 weeks. Please call GI clinic @ [phone] for apppointment date and time. - Repeat upper endoscopy in 3 years to evaluate the response to therapy and for retreatment. - Return to primary care physician. Procedure Code(s): --- Professional --- 44661, Esophagogastroduodenoscopy, flexible, transoral; with biopsy, single or multiple Diagnosis Code(s): --- Professional --- K22.8, Other specified diseases of esophagus K29.70, Gastritis, unspecified, without bleeding R13.10, Dysphagia, unspecified CPT copyright 2019 [employer]. All rights reserved. The codes documented in this report are preliminary and upon chain sales representative review may be revised to meet current compliance requirements. Abilio Hart MD Abilio Hart MD 04/06/2021 8:33:29 AM Electronically signed by Abilio Hart MD Number of Addenda: 0 Note Initiated On: 04/06/2021 7:38 AM Estimated Blood Loss: Estimated blood loss was minimal.
[2021-04-06 08:44] VITALS: BP 138/77
--- NOTE | 2021-04-06 08:46 | ROOR ---
Patient Name: Francine Muir Procedure Date: 04/06/2021 7:38 AM Date of : 1950 Age: 70 Room: [facility] Gender: Female Note Status: Finalized Procedure: Colonoscopy Indications: Screening for colorectal malignant neoplasm, High risk colon cancer surveillance: Personal history of colonic polyps Providers: Abilio Hart MD Referring MD: Znuilda Willson DO Requesting Provider: Medicines: Monitored Anesthesia Care Complications: No immediate complications. Procedure: Pre-Anesthesia Assessment: - Prior to the procedure, a History and Physical was performed, and patient medications and allergies were reviewed. The patient is competent. The risks and benefits of the procedure and the sedation options and risks were discussed with the patient. All questions were answered and informed consent was obtained. Patient identification and proposed procedure were verified by the physician, the nurse and the anesthesiologist in the procedure room. Mental Status Examination: alert and oriented. Airway Examination: normal oropharyngeal airway and neck mobility. Respiratory Examination: clear to auscultation. CV Examination: normal. Prophylactic Antibiotics: The patient does not require prophylactic antibiotics. Prior Anticoagulants: The patient has taken no previous anticoagulant or antiplatelet agents. ASA Grade Assessment: II - A patient with mild systemic disease. After reviewing the risks and benefits, the patient was deemed in satisfactory condition to undergo the procedure. The anesthesia plan was to use monitored anesthesia care (MAC). Immediately prior to administration of medications, the patient was re-assessed for adequacy to receive sedatives. The heart rate, respiratory rate, oxygen saturations, blood pressure, adequacy of pulmonary ventilation, and response to care were monitored throughout the procedure. The physical status of the patient was re-assessed after the procedure. The Colonoscope was introduced through the anus and advanced to the terminal ileum, with identification of the appendiceal orifice and IC valve. The colonoscopy was performed without difficulty. The patient tolerated the procedure well. The quality of the bowel preparation was good. The terminal ileum, ileocecal valve, appendiceal orifice, and rectum were photographed. Scope insertion time was 2 minutes. Scope withdrawal time was 9 minutes. The total duration of the procedure was 12 minutes. Findings: The perianal and digital rectal examinations were normal. The terminal ileum appeared normal. Two sessile polyps were found in the recto-sigmoid colon and transverse colon. The polyps were 4 to 6 mm in size. These polyps were removed with a cold snare. Resection and retrieval were complete. Verification of patient identification for the specimen was done by the physician and nurse using the patient's name, date and medical record number. Multiple small and large-mouthed diverticula were found in the descending colon, transverse colon and ascending colon. There was no evidence of diverticular bleeding. Non-bleeding external and internal hemorrhoids were found during retroflexion. The hemorrhoids were large. Impression: - The examined portion of the ileum was normal. - Two 4 to 6 mm polyps at the recto-sigmoid colon and in the transverse colon, removed with a cold snare. Resected and retrieved. - Moderate diverticulosis in the descending colon, in the transverse colon and in the ascending colon. There was no evidence of diverticular bleeding. - Non-bleeding external and internal hemorrhoids. Recommendation: - Patient has a contact number available for emergencies. The signs and symptoms of potential delayed complications were discussed with the patient. Return to normal activities tomorrow. Written discharge instructions were provided to the patient. - High fiber diet. - Continue present medications. - Await pathology results. - Repeat colonoscopy in 5-10 years for surveillance based on pathology results. - Return to GI clinic in [facility] (address: [address] [place] [address], 1st floor, [place],[address]) in 4 -- 6 weeks. Please call GI clinic @ [phone] for apppointment date and time. - Return to primary care physician. Procedure Code(s): --- Professional --- 35647, Colonoscopy, flexible; with removal of tumor(s), polyp(s), or other lesion(s) by snare technique Diagnosis Code(s): --- Professional --- Z12.11, Encounter for screening for malignant neoplasm of colon Z86.010, Personal history of colonic polyps K64.8, Other hemorrhoids K63.5, Polyp of colon K57.30, Diverticulosis of large intestine without perforation or abscess without bleeding CPT copyright 2019 [employer]. All rights reserved. The codes documented in this report are preliminary and upon scientist engineer review may be revised to meet current compliance requirements. Abilio Hart MD Abilio Hart MD 04/06/2021 8:45:29 AM Electronically signed by Abilio Hart MD Number of Addenda: 0 Note Initiated On: 04/06/2021 7:38 AM Estimated Blood Loss: Estimated blood loss was minimal.
== END 2021-04-06 08:59 | disposition home or self-care (01) ==
LOC: M OPP 07:02
PROVIDERS: ATTEND Internal Medicine Gastroenterology
DX: K63.5 Polyp of colon (principal); R13.10 Dysphagia, unspecified; Z12.11 Encounter for screening for malignant neoplasm of colon; K64.8 Other hemorrhoids; K57.30 Diverticulosis of large intestine without perforation or abscess without bleeding; K29.70 Gastritis, unspecified, without bleeding; K22.89 Other specified disease of esophagus
CPT/HCPCS: 43239; 45385; 88305; J2370; J3010

== ENCOUNTER → 2024-11-08 | Outpatient (CLI) | payer MEDICARE ==
[~2024-11-08] MED LIST changes: -NS 1,000 ML IV ONE
== END ==
LOC: M EKG 14:42
PROVIDERS: ATTEND Internal Medicine Cardiovascular Disease
DX: R42 Dizziness and giddiness (principal)

== ENCOUNTER → 2024-11-29 | Outpatient (CLI) | payer MEDICARE | LOC: M SLEEP HO 11:18 | PROVIDERS: ATTEND Internal Medicine Cardiovascular Disease | DX: G47.33 Obstructive sleep apnea (adult) (pediatric) (principal) ==

== ENCOUNTER → 2025-01-27 | Outpatient (CLI) | payer MEDICARE | LOC: M PLAIMG 10:25 | PROVIDERS: ATTEND Internal Medicine Cardiovascular Disease | DX: R01.1 Cardiac murmur, unspecified (principal); G47.33 Obstructive sleep apnea (adult) (pediatric); I10 Essential (primary) hypertension; I08.1 Rheumatic disorders of both mitral and tricuspid valves ==